=== PATIENT | female | born 1935 | race Hispanic/Latino ===

== ENCOUNTER 2016-11-04 12:09 | Observation (INO) | payer MEDICARE ==
--- NOTE | 2016-11-04 12:39 | ED PDOC ---
Arrival/HPI - General Historian: Patient - Critical Care Critical Care Minutes: 45 minutes - History of Present Illness Time/Duration: Prior to Arrival Symptom Onset: Sudden Symptom Course: Unchanged - General Chief Complaint: Palpitations Time Seen by Provider: 11/04/16 12:11 - Critical Care Narrative Critical Care (Text): 11/04/16 12:53 81yo F presenting in supraventricular tachycardia (SVT). The patient was given 6mg Adenosine IVP. The patient was placed on continuous EKG at this time. Prior to the adenosine push, the patient's HR was 153 and regular. The patient reported feeling faint following the injection. She was monitored on continuous EKG and via telemetric leads. The patient's HR was confirmed as sinus via EKG. The patient was observed and monitored following the procedure. (Apolinar Hernandez) - History of Present Illness Narrative History of Present Illness (Text): 11/04/16 12:32 This is an 81 year old female with a PMH notable for CAD and HTN presenting by referral from PMD to the ED for evaluation of heart palpitations. The patient notes that she was shopping when she started to have palpitations. There was no associated chest pain. The patient notes that she feels her heart racing and then one big beat, a pause, then her heart begins to race again. There is no associated SOB, chest pain, syncopal episodes. (Apolinar Hernandez) Past Medical History - Provider Review Nursing Documentation Reviewed: Yes - Travel History Have you recently traveled outside [place] w/in the past 3 mons?: No - Infectious Disease Hx of Infectious Diseases: None - Tetanus Immunization Tetanus Immunization: Unknown - Reproductive Menopause: Yes - Cardiac Hx Cardiac Disorders: Yes Hx Coronary Artery Disease: Yes (s/p quadruple bypass (1998) and 4 stents (2012) ) Hx Cardiac Arrhythmia: Yes (SVT) Hx Hypertension: Yes Other/Comment: cardiac stent - Pulmonary Hx Emphysema: No - Neurological Hx Neurological Disorder: Yes (SYNCOPE) - HEENT Hx HEENT Disorder: No - Renal Hx Renal Disorder: No - Endocrine/Metabolic Hx Endocrine Disorders: No - Hematological/Oncological Hx Blood Disorders: No - Integumentary Hx Dermatological Disorder: No - Musculoskeletal/Rheumatological Hx Musculoskeletal Disorders: Yes Hx Falls: Yes Hx Fractures: Yes (hip surgery) - Gastrointestinal Hx Gastrointestinal Disorders: Yes Other/Comment: gatroenteritis - Genitourinary/Gynecological Hx Genitourinary Disorders: No - Psychiatric Hx Depression: No Hx Emotional Abuse: No Hx Physical Abuse: No Hx Substance Use: No - Surgical History Hx Cardiac Catheterization: Yes (RECENT PTCA WITH 4 STENT) Hx Coronary Stent: Yes (X4) Hx Hysterectomy: Yes Hx Open Heart Surgery: Yes Hx Orthopedic Surgery: Yes (HIP R) Other/Comment: CABG 1998, CARDIAC STNETS X 4, - Anesthesia Hx Anesthesia Reactions: Yes Hx Malignant Hyperthermia: No - Suicidal Assessment Feels Threatened In Home Enviroment: No - Patient History Narrative Patient History: CAD and HTN (Apolinar Hernandez) Family/Social History - Physician Review Nursing Documentation Reviewed: Yes Family/Social History: Unknown Family HX Smoking Status: Never Smoked Hx Alcohol Use: Yes ([employer]) Frequency of alcohol use: Socially Hx Substance Use: No Hx Substance Use Treatment: No Allergies/Home Meds Allergies/Adverse Reactions: Allergies codeine Allergy (Verified 11/04/16 16:45) NAUSEA radiological cotrast Allergy (Uncoded 11/04/16 16:45) URTICARIA Home Medications: Home Meds Medication Instructions Recorded Confirmed Aspirin [Aspirin] 81 mg PO DAILY 06/10/13 11/05/16 ALPRAZolam [Xanax] 0.25 mg PO TID PRN 11/04/16 11/05/16 Atorvastatin [Lipitor] 40 mg PO DAILY 11/04/16 11/04/16 Carvedilol [Coreg] 6.25 mg PO DAILY 11/04/16 11/05/16 Clopidogrel [Plavix] 75 mg PO DAILY 11/04/16 11/05/16 Ezetimibe [Zetia] 10 mg PO DAILY 11/04/16 11/05/16 Polyethylene Glycol 3350 [Miralax] 17 gm PO BID 11/04/16 11/04/16 Ramipril [Altace] 5 mg PO DAILY 11/04/16 11/05/16 Review of Systems - Physician Review All systems were reviewed & negative as marked: Yes - Review of Systems Constitutional: absent: Fatigue Eyes: absent: Vision Changes ENT: absent: Tinnitus Respiratory: absent: SOB Cardiovascular: Palpitations. absent: Chest Pain, Syncope Gastrointestinal: absent: Abdominal Pain Musculoskeletal: absent: Arthralgias, Back Pain Skin: absent: Rash Neurological: absent: Headache Physical Exam Temperature: Afebrile Blood Pressure: Hypertensive Pulse: Tachycardic Respiratory Rate: Normal Appearance: Positive for: Well-Appearing, Comfortable Pain Distress: None Mental Status: Positive for: Alert and Oriented X 3 - Systems Exam Head: Present: Atraumatic, Normocephalic Pupils: Present: PERRL Extroacular Muscles: Present: EOMI Conjunctiva: Present: Normal Mouth: Present: Moist Mucous Membranes Respiratory/Chest: Present: Clear to Auscultation, Good Air Exchange. No: Respiratory Distress, Accessory Muscle Use Cardiovascular: Present: Normal S1, S2, Tachycardic. No: Regular Rate and Rhythm, Murmurs Abdomen: Present: Normal Bowel Sounds. No: Tenderness, Distention, Peritoneal Signs Upper Extremity: Present: Normal Inspection, NORMAL PULSES, Neurovascularly Intact. No: Cyanosis, Edema Lower Extremity: Present: Normal Inspection, NORMAL PULSES, Neurovascularly Intact. No: Edema Neurological: Present: GCS=15, CN II-XII Intact, Speech Normal Skin: Present: Warm, Dry Psychiatric: Present: Alert, Oriented x 3 Vital Signs Temp Pulse Pulse Resp BP Pulse Ox 11/04/16 15:36 72 18 162/73 H 98 11/04/16 14:00 153 H 11/04/16 12:09 97.6 F 153 H 18 143/93 H 97 Medical Decision Making - Lab Interpretations I have reviewed the lab results: Yes Interpretation: No clinic. lab abnormalty (minimal elevation in BNP, no ausculatory findings or clinical sequela) - EKG Interpretation Interpreted by ED Physician: Yes Type: Monitor strip Comparison: Com.w/previous EKG ED Course and Treatment: 11/04/16 13:02 Impression: This is an 81 year old female with a PMH notable for CAD and HTN presenting by referral from PMD to the ED for evaluation of heart palpitations. The patient was evaluated on telemetric monitoring and diagnosed as have a rhythm of SVT. Adenosine was given (6mg). The patient was monitored on continuous EKG during adenosine challenge and found to have a sinus rhythm. The patient appears comfortable presently. The patient tolerated the adenosine challenge. The patient will require admission for observation and telemetric monitoring. Differential Diagnosis: SVT A-Fib with RVR Sinus Tachycardia Plan: Adenosine 6mg IVP Challenge EKG Urine C&S Cardiac ISO BNP, CMP, Mag, Phos, TSH, CBC, PT, PTT Prior Visits: 10/10/15- SVT 08/10/13- Syncope 07/03/13- CAD 06/17/13- Chest Pain Progress Note: Patient seen and examined at the bedside. The patient is in minimal distress 2/ 2 to tachycardia and palpitations. Patient has a regular rhythm and per evaluation of tele monitor and EKG appears in SVT. The patient was given adenosine for diagnostic purposes and was monitored on continuous EKG. The patient tolerated the procedure well. SVT was confirmed. The patient will be admitted to the telemetry floor. The patient is currently at a HR in the high 60s low 70s. Down from 140-150s. The patient is comfortable currently. (Apolinar Hernandez) - Lab Interpretations Lab Results: 11/04/16 12:45 11/04/16 12:45 Lab Results 11/04/16 12:45: WBC 10.3 D, RBC 4.01, Hgb 12.7, Hct 37.4, MCV 93.3, MCH 31.7, MCHC 34.0, RDW 13.9, Plt Count 225, MPV 9.7, Gran % 80.3 H, Lymph % (Auto) 9.8 L , [place] % (Auto) 7.8 H, Eos % (Auto) 1.8, Baso % (Auto) 0.3, Gran # 8.28 H, Lymph # 1.0 L, [place] # 0.8 H, Eos # 0.2, Baso # 0.03, PT 10.8, INR 1.00, APTT 27.4, Sodium 137, Potassium 4.6, Chloride 99, Carbon Dioxide 30, Anion Gap 13, BUN 12, Creatinine 0.7, Est GFR ( Amer) > 60, Est GFR (Non-Af Amer) > 60 , Random Glucose 111 H, Calcium 9.7, Phosphorus 4.4, Magnesium 2.1, Total Bilirubin 0.7, AST 50 H, ALT 35, Alkaline Phosphatase 82, Lactate Dehydrogenase 502, Total Creatine Kinase 46, Troponin I < 0.01 D, NT-Pro-B Natriuret Pep 540 H, Total Protein 8.4 H, Albumin 4.5, Globulin 3.9, Albumin/Globulin Ratio 1.2, TSH 3rd Generation 1.88 - RAD Interpretation Radiology Orders: 11/04/16 12:40 CHEST PORTABLE [RAD] Stat - EKG Interpretation EKG Interpretation (Text): 11/04/16 15:24 SVT (Apolinar Hernandez) - Medication Orders Current Medication Orders: Discontinued Medications Adenosine (Adenosine 6 Mg/2 Ml Inj) Confirm Administered Dose 12 mg .ROUTE .STK- MED ONE Stop: 11/04/16 12:43 Last Admin: 11/04/16 12:50 Dose: 6 MG Alprazolam (Xanax) 0.25 mg PO TID JOCELYN PRN Reason: Protocol Stop: 11/12/16 10:01 Last Admin: 11/05/16 14:15 Dose: 0.25 MG Behavioural Document 11/05/16 14:15 FJA (Rec: 11/05/16 14:15 [email or web address]-[id number]) Maintenance Maintenance Dose Yes Alprazolam (Xanax) 0.25 mg PO STAT STA PRN Reason: Protocol Stop: 11/04/16 21:00 Last Admin: 11/04/16 21:49 Dose: 0.25 MG Behavioural Document 11/04/16 21:49 [email or web address] (Rec: 11/04/16 21:[id number]) Maintenance Maintenance Dose Yes Nonmedicinal Nonmedicinal Interventions Activity Behavior Behavior for Medication: Anxiety Aspirin (Ecotrin) 81 mg PO DAILY [facility] Last Admin: 11/05/16 10:03 Dose: 81 MG Atorvastatin Calcium (Lipitor) 40 mg PO DIN [facility] Last Admin: 11/04/16 19:59 Dose: 40 MG Carvedilol (Coreg) 6.25 mg PO BID JOCELYN Carvedilol (Coreg) 6.25 mg PO STAT STA Stop: 11/04/16 21:08 Last Admin: 11/04/16 21:52 Dose: 6.25 MG MAR Pulse and Blood Pressure Document 11/04/16 21:52 [email or web address] (Rec: 11/04/16 21:52 [email or web address] [id number]) Pulse Pulse Rate (60-90) 76 Blood Pressure Blood Pressure (100/60-150/90) 144/72 Carvedilol (Coreg) 6.25 mg PO TID [facility] Last Admin: 11/05/16 14:14 Dose: 6.25 MG MAR Pulse and Blood Pressure Document 11/05/16 14:14 FJ (Rec: 11/05/16 14:15 [facility]-[id number]) Pulse Pulse Rate (60-90) 66 Blood Pressure Blood Pressure (100/60-150/90) 144/92 Clopidogrel Bisulfate (Plavix) 75 mg PO DAILY [facility] Last Admin: 11/05/16 10:03 Dose: 75 MG Ezetimibe (Zetia) 10 mg PO DAILY [facility] Last Admin: 11/05/16 10:04 Dose: 10 MG Influenza Virus Vaccine (Fluvirin) 45 mcg IM .ONCE ONE Stop: 11/04/16 20:13 Pneumococcal Polyvalent Vaccine (Pneumovax 23 Vaccine) 0.5 ml IM .ONCE ONE Stop: 11/04/16 20:13 Ramipril (Altace) 5 mg PO DAILY [facility] Last Admin: 11/05/16 10:02 Dose: 5 MG MAR Blood Pressure Document 11/05/16 10:02 JULIET (Rec: 11/05/16 10:03 [facility]-[id number]) Blood Pressure Blood Pressure (100/60-150/90) 139/90 Disposition/Present on Arrival - Present on Arrival Any Indicators Present on Arrival: No History of DVT/PE: No History of Uncontrolled Diabetes: No Urinary Catheter: No History Surgical Site Infection Following: None - Disposition Have Diagnosis and Disposition been Completed?: Yes Disposition Time: 15:34 Patient Plan: Admission, Telemetry - Disposition Diagnosis: SVT (supraventricular tachycardia), Palpitations Disposition: HOSPITALIZED Condition: FAIR
[2016-11-04 13:03] LABS: ADD MANUAL DIFF? NO
[2016-11-04 13:11] LABS: BASO # 0.03 K/mm3 (0.0-2.0); BASO % 0.3 % (0.0-3.0); EOS # 0.2 (0.0-0.7); EOS % 1.8 % (1.5-5.0); GRAN # 8.28 (1.4-6.5); GRAN % 80.3 % (50.0-68.0); HEMATOCRIT 37.4 % (36.0-48.0); LYMPH % 9.8 % (22.0-35.0); MEAN CELL VOLUME 93.3 fL (80.0-105.0); MEAN CORPUSCULAR HEMOGLOBIN 31.7 pg (25.0-35.0); MEAN PLATELET VOLUME 9.7 fl (7.0-11.0); MONO # 0.8 (0.1-0.6); MONO % 7.8 % (1.0-6.0); PLATELET COUNT 225 10^3/uL (120.0-450.0); RED CELL DISTRIBUTION WIDTH 13.9 % (11.5-14.5); WHITE BLOOD COUNT 10.3 10^3/ul (4.5-11.0)
[2016-11-04 13:16] LABS: ALB/GLOB RATIO 1.2 (1.1-1.8); ALKALINE PHOSPHATASE 82 U/L (38-133); ALT/SGPT 35 U/L (7-56); AST/SGOT 50 U/L (15-39); BILIRUBIN,TOTAL 0.7 mg/dL (0.2-1.3); BLOOD UREA NITROGEN 12 mg/dL (7-21); CALCIUM 9.7 mg/dL (8.4-10.5); CARBON DIOXIDE 30 mmol/L (21-33); CHLORIDE 99 mmol/L (98-107); GFR AFRICAN-AMERICAN > 60; GLUCOSE,RANDOM 111 mg/dL (70-110); MAGNESIUM 2.1 mg/dL (1.7-2.2); PHOSPHOROUS 4.4 mg/dL (2.5-4.5); POTASSIUM 4.6 mmol/L (3.6-5.0); SODIUM 137 mmol/L (132-148); TOTAL PROTEIN 8.4 g/dL (5.8-8.3)
[2016-11-04 13:18] LABS: PARTIAL THROMBOPLASTIN TIME 27.4 Seconds (23.7-30.8)
[2016-11-04 13:32] LABS: TROPONIN I < 0.01 ng/mL
[2016-11-04 14:25] LABS: PH,URINE 6.5 (4.7-8.0); URINE BILIRUBIN NEGATIVE (NEGATIVE); URINE BLOOD NEGATIVE (NEGATIVE); URINE GLUCOSE (UA) NEGATIVE (NEGATIVE); URINE KETONE NEGATIVE (NEGATIVE); URINE LEUKOCYTE ESTERASE SMALL Leu/uL (NEGATIVE); URINE PROTEIN NEGATIVE mg/dL (<30 mg/dL); URINE UROBILINOGEN 0.2 E.U./dL (<1 E.U./dL)
[2016-11-04 14:27] LABS: URINE APPEARANCE CLEAR (CLEAR); URINE COLOR YELLOW (YELLOW)
--- NOTE | 2016-11-04 14:27 | RAD ---
HISTORY: palpitations COMPARISON: No prior. FINDINGS: LUNGS: Lung markings are accentuated. There is no focal consolidation. PLEURA: No significant pleural effusion identified, no pneumothorax apparent. CARDIOVASCULAR: The heart is normal in size. Status post CABG. OSSEOUS STRUCTURES: Within normal limits for the patient's age. VISUALIZED UPPER ABDOMEN: Normal. OTHER FINDINGS: None. IMPRESSION: Mild pulmonary venous congestion. No focal consolidation or pleural effusions.
[2016-11-04 14:39] LABS: URINE EPITHELIAL CELLS 0 - 2 /hpf (0-5); URINE RBC NEGATIVE /hpf (0-2); URINE WBC 0 - 2 /hpf (0-6)
[2016-11-04] MEDS ORDERED: Pneumococcal 23-Valent Vaccine IM ONE (20:12)
[2016-11-04] MEDS ORDERED: Influenza Vaccine 45 MCG/0.5 ml IM ONE (20:12)
[2016-11-04 20:13] VITALS: BMI 24.3
[2016-11-05 05:04] VITALS: RESP 20
[2016-11-05 05:55] VITALS: TEMP 98; O2SAT 97
--- NOTE | 2016-11-05 09:46 | CARD ---
APPROVED REPORT EKG Measurement Heart [id number] <Conclusion> Supraventricular tachycardia, new Left ventricular hypertrophy with repolarization abnormality LAD Possible IMI, old PRWP STTW changes c/w ischemia
--- NOTE | 2016-11-05 09:51 | CARD ---
APPROVED REPORT EKG Measurement Heart [id number] [place] [id number] <Conclusion> Sinus tachycardia, new since earlier ECG LAD Possible IMI, luiza trejo
--- NOTE | 2016-11-05 09:53 | CARD ---
APPROVED REPORT EKG Measurement Heart [id number] [place] [id number] <Conclusion> Normal sinus rhythm LVH LAD STTW changes. No change except slower rate.
--- NOTE | 2016-11-05 10:32 | CON ---
DATE: 11/05/2016 INDICATIONS: SVT. HISTORY OF PRESENT ILLNESS: This is an 81-year-old woman known to me, admitted yesterday with palpitations, which developed while shopping that persisted for several hours. She went to the office of Dr. Avery. She was sent to the Emergency Room, given adenosine, and the SVT broke to sinus rhythm. She remained in sinus rhythm. She is currently on telemetry. She feels well this morning without symptoms. She had described palpitations, but no chest pain, shortness of breath, orthopnea, PND, syncope, dizziness, lightheadedness, vertigo, edema, claudication, fever, chills, cough, sputum production, hemoptysis, abdominal pain, nausea, vomiting, diarrhea, constipation , or melena. PAST MEDICAL HISTORY: Notable for prior episode of SVT. She has a history of coronary artery disease with remote coronary bypass surgery complicated by perioperative myocardial infarction. In 2012, she underwent coronary interventions. She has cerebrovascular disease, hyperlipidemia, hypertension, hip surgery, and a hysterectomy. There is no history of rheumatic fever, diabetes, stroke, or gout. MEDICATIONS: At the time of admission include Altace, aspirin, Coreg, Lipitor, Plavix, Zetia, Xanax, MiraLax. ALLERGIES: SHE NOTES AN ALLERGY TO CODEINE AND TO IV CONTRAST. SOCIAL HISTORY: She lives at home. She is retired. She is ambulatory. She does not smoke cigarettes. She does not drink alcohol significantly. FAMILY HISTORY: Noncontributory. REVIEW OF SYSTEMS: Ten-point review of systems otherwise unremarkable except as noted above. PHYSICAL EXAMINATION: GENERAL: She is a well-developed elderly woman, sitting on her bed in telemetry , in no acute distress. VITAL SIGNS: Unremarkable. She is in sinus rhythm, sinus bradycardia, currently 63 beats per minute. She is afebrile. Blood pressure 139/70, respirations 20, O2 sat 97% on room air. HEENT: Reveals no neck-vein distention, thyromegaly, or carotid bruits. Mucous membranes are moist. Conjunctivae are pink. NECK: Supple. LUNGS: Lung mon are clear. HEART: Revealed normal first and second heart sounds without murmur, gallop, rub, or click. ABDOMEN: Soft. Bowel sounds are present. No mass, organomegaly, tenderness, rebound, or guarding. No palpable abdominal aortic aneurysm. EXTREMITIES: Revealed no cyanosis, clubbing, or edema. NEUROLOGIC: She is awake, alert, oriented, and intact. SKIN: Warm and dry. No rash or cellulitis. PSYCHIATRIC: Normal as to mood and affect. LABORATORY AND IMAGING: A chest x-ray reveals a portable study. Mild pulmonary vascular congestion is noted. EKGs initially show rapid SVT at 152 beats per minute with ST-T wave changes and LVH. Followup EKG shows sinus rhythm, sinus tachycardia, left axis deviation, ST-T wave changes. CBC is unremarkable. PT, INR, PTT unremarkable. Electrolytes, BUN, creatinine , blood sugar unremarkable. Magnesium 2.1. LFTs unremarkable except for a slightly elevated AST at 50. CK is 46, troponin less than 0.01. BNP 540. TSH 1.88. IMPRESSION: The patient is an 81-year-old woman with coronary artery disease status post remote coronary bypass surgery complicated by a myocardial infarction perioperatively at that time admitted with SVT which broke with adenosine. She has had coronary interventions in 2012 and a history of supraventricular tachycardia once before. At this time, she has remained in sinus rhythm. I would continue her medications including Coreg, which I would titrate upward. I will repeat her troponin this morning. I will review her old records. She can be out of bed and ambulate. She will be getting Altace, Coreg 6.25 t.i.d., aspirin, atorvastatin, Plavix, and Zetia. On an outpatient basis, she should be considered for an electrophysiology evaluation and possible supraventricular tachycardia ablation as appropriate. I will discuss this with her. In the meantime, we will titrate her beta-cullen and plan for early discharge either later today or tomorrow. Charlie Coppola MD cc: [id number] TT: 11/05/2016 10:32:32 Confirmation # [id number] Dictation # [id number] jn ANAM
[2016-11-05 14:16] VITALS: BP 144/92; PULSE 66
--- NOTE | 2016-11-06 09:27 | CARD ---
APPROVED REPORT EXAM: Two-dimensional and M-mode echocardiogram with Doppler and color Doppler. INDICATION palpitations, SVT, old [place] 2D DIMENSIONS Left Atrium (2D)3.4 (1.6-4.0cm)IVSd1.2 (0.7-1.1cm) Aortic Root (2D)3.0 (2.0-3.7cm)LVDd3.4 (3.9-5.9cm) LVOT Diameter1.9 (1.8-2.4cm)PWd1.2 (0.7-1.1cm) LVDs2.4 (2.5-4.0cm)FS (%) 28.8 % LVEF (%)56.0 (>50%) M-Mode DIMENSIONS Aortic Cusp Exc.0.90 (1.5-2.0cm) Aortic Valve AoV Peak Iuzygqov696.0cm/sAoV VTI84.0cmAO Peak GR.43mmHg LVOT Peak Yazzuqbq86.0cm/sLVOT VTI25.30cmAO Mean GR.27mmHg GODWIN (VMAX)0.27sj4HOO (VTI)0.95ei6BJ P 1/2 Icuh259wy Mitral Valve MV E Nslkgofd779.0cm/sMV E Peak Gr.84mmHgMV A Vszyieny562.0cm/s E/A ratio0.9 TDI Lateral E' Peak V8.38cm/sMedial E' Peak V4.19cm/sE/Lateral E'12.9 E/Medial E'25.8 Pulmonary Valve PV Peak Zwvdttfj94.7cm/sPV Peak Grad.4mmHg Tricuspid Valve TR Peak Lurgouiq412bj/sRAP SUCCHFCT0qtKyOF Peak Gr.23mmHg KJIE96pwSi LEFT VENTRICLE The left ventricle is normal size. There is mild concentric left ventricular hypertrophy. The left ventricular function is normal. The left ventricular ejection fraction is within the normal range. There is normal LV segmental wall motion. RIGHT VENTRICLE The right ventricle is normal size. ATRIA The left atrium is mildly dilated. The right atrium size is normal. The interatrial septum is intact with no evidence for an atrial septal defect. AORTIC VALVE The aortic valve is severely calcified. There is mild aortic regurgitation. There is moderate valvular aortic stenosis. MITRAL VALVE The mitral valve is moderately thickened but opens well. There are mitral annular and subvalvular calcifications. Mitral regurgitation is mild. TRICUSPID VALVE The tricuspid valve is normal in structure. There is trace tricuspid regurgitation. PULMONIC VALVE The pulmonic valve is not well visualized. GREAT VESSELS The aortic root is normal in size. PERICARDIAL EFFUSION There is no pericardial effusion. <Conclusion> The left ventricle is normal size. There is mild concentric left ventricular hypertrophy. The left ventricular function is normal. The aortic valve is severely calcified. There is moderate valvular aortic stenosis. There is mild aortic regurgitation. Mitral regurgitation is mild.
--- NOTE | 2016-11-07 11:20 | HP ---
The patient is an 81-year-old female who presented to the office complaining of palpitations. She was found to be in AFib/SVT, was sent to the Emergency Room, is evaluated and admitted. In the Emergency Room, EKG showed supraventricular tachycardia. She was treated with adenosine, converted to regular sinus rhythm. The patient tolerated this well. When seen, she was awake, alert, and oriented without any complaints. PAST MEDICAL HISTORY: Positive for coronary artery disease. She is status post coronary artery bypass grafting in 1998, and 4 stents were placed in 2012. She says she had a history of SVT since she was 15 years old. She was essentially no other past medical history. She is status post hip surgery. ALLERGIES: SHE IS KNOWN TO BE ALLERGIC TO CODEINE, WHICH CAUSED NAUSEA, AND INTRAVENOUS CONTRAST MEDIUM, WHICH CAUSED HIVES. MEDICATIONS: At the time of admission included ramipril 5 mg, Xanax 0.25 three times a day as needed, Zetia 10 mg once a day, Lipitor 40 mg, Plavix 75 mg, Coreg 6.25 mg 3 times a day, and aspirin 81 mg. REVIEW OF SYSTEMS: Otherwise, unremarkable. PHYSICAL EXAMINATION: VITAL SIGNS: Her blood pressure is 143/93. Heart rate is 133 prior to conversion to regular sinus. She is afebrile. HEAD, EYES, EARS, NOSE, AND THROAT: Unremarkable. NECK: Supple, with no lymphadenopathy, no goiter. No carotid bruits are appreciated. HEART: Now regular at about 98 beats per minute. Her blood pressure is 159/90 , and her heart rate is down to 63 beats per minute. LUNGS: Clear to auscultation and percussion. ABDOMEN: Soft and nontender. EXTREMITIES: Free of cyanosis, clubbing, or edema. SKIN: Warm and dry with no active lesions. NEUROLOGIC: She is awake, alert, and oriented with no focal neurological signs. LABORATORY STUDIES: Show the BNP to be 540. Troponins are negative. White blood cell count is 10.3. Hemoglobin and hematocrit are 12.7 and 37.4. Platelet count is 225. Sodium is 137, potassium 4.6. BUN is 12, creatinine 0.7. So, the patient is to be admitted. Dr. Coppola, her registered land surveyor, is called consult, and the patient will be followed closely. Felton Avery MD cc: [phone] TT: 11/07/2016 11:19:41 jn ANAM
--- NOTE | 2016-11-07 14:52 | DS ---
The patient is an 81-year-old female with a history of coronary artery disease, status post coronary artery bypass grafting in 1998, status post stent placement in 2012, who had a history of SVT ever si nce she was a 15-year-old, who presented to the Emergency Room in SVT on 11/04, yesterday. She was tr eated with adenosine in the Emergency Room, converted to regular sinus rhythm and had been stable. W hen seen today, 11/05, the patient is awake, alert, and oriented. She is feeling well. She has no co mplaints. She has remained in regular sinus rhythm overnight. She was evaluated by her teaching specialists , Dr. Coppola. PHYSICAL EXAMINATION: HEART: Regular, no murmurs are appreciated. LUNGS: Clear. ABDOMEN: Soft and nontender. The patient's home medications were continued during the hospital stay. Dr. Coppola's notes are appre ciated. We will be increasing her beta cullen. She is cleared for discharge if okay with Dr. Timo christopher. We are currently awaiting the results of an echocardiogram and post discharge, the patient will c ontinue to be followed closely. Consider a possible ablation therapy for her SVT. FINAL DIAGNOSES: Supraventricular tachycardia, coronary artery disease, status post stent placed, st atus post percutaneous transluminal coronary angioplasty, status post coronary artery bypass grafting . Felton Avery MD cc: [phone] TT: 11/07/2016 14:51:43 en
== END 2016-11-05 16:40 | disposition home or self-care (01) ==
LOC: ED 12:09 → ERH 13:34 → 2RNO 16:47
PROVIDERS: ADMIT Internal Medicine; ATTEND Internal Medicine
DX: I47.1 Supraventricular tachycardia (principal); R00.0 Tachycardia, unspecified; E78.5 Hyperlipidemia, unspecified; I48.91 Unspecified atrial fibrillation; I10 Essential (primary) hypertension; I25.10 Atherosclerotic heart disease of native coronary artery without angina pectoris; I67.9 Cerebrovascular disease, unspecified; Z79.02 Long term (current) use of antithrombotics/antiplatelets; Z79.82 Long term (current) use of aspirin; Z79.899 Other long term (current) drug therapy; Z90.710 Acquired absence of both cervix and uterus; Z95.1 Presence of aortocoronary bypass graft; Z95.5 Presence of coronary angioplasty implant and graft; I25.2 Old myocardial infarction; Z88.5 Allergy status to narcotic agent; Z91.041 Radiographic dye allergy status
CPT/HCPCS: 36415; 71010; 80053; 81001; 82550; 83615; 83735; 83880; 84100; 84443; 84484; 85025; 85610; 85730; 87086; 93005; 93306; 99285; G0378; J0153

== ENCOUNTER 2017-01-03 12:00 | Emergency (ER) | payer MEDICARE ==
[2017-01-03 12:13] VITALS: BMI 24.4
[2017-01-03 12:18] VITALS: TEMP 97.9; O2SAT 96
[2017-01-03 12:26] LABS: ADD MANUAL DIFF? NO
--- NOTE | 2017-01-03 12:29 | ED PDOC ---
Arrival/HPI <Renny Taiitriy - Last Filed: 01/03/17 13:41> - General Historian: Patient - History of Present Illness Time/Duration: Prior to Arrival Symptom Onset: Sudden Symptom Course: Unchanged <Shaka Valverde - Last Filed: 01/03/17 13:47> - General Chief Complaint: Palpitations Time Seen by Provider: 01/03/17 12:08 - History of Present Illness Narrative History of Present Illness (Text): 81 F with pmh of HLD, CAD (CABG and 4 stents) , HTN presents to the ED with palpitations. Pt states that her palpitations started this morning a prox 2 hours before arrival to the ED. Pt denies any chest pain or shortness of breath. Pt states that she has gotten this before on her last hospital visit on 11/04/16 and they used a drug to break the rhythm. She denies any hartman, dizziness , f/c, sob, cp, palpitations, abd pain, urinary or bm changes. PMD: Dr Avery (Shaka Valverde) Past Medical History - Provider Review Nursing Documentation Reviewed: Yes - Infectious Disease Hx of Infectious Diseases: None - Tetanus Immunization Tetanus Immunization: Unknown - Cardiac Hx Cardiac Disorders: Yes Hx Cardiac Arrhythmia: Yes (SVT) Hx Hypertension: Yes Other/Comment: cardiac stent - Pulmonary Hx Emphysema: No - Neurological Hx Neurological Disorder: Yes (SYNCOPE) Hx Dizziness: Yes - HEENT Hx HEENT Disorder: No - Renal Hx Renal Disorder: No - Endocrine/Metabolic Hx Endocrine Disorders: No - Hematological/Oncological Hx Blood Disorders: No - Integumentary Hx Dermatological Disorder: No - Musculoskeletal/Rheumatological Hx Musculoskeletal Disorders: Yes Hx Falls: Yes Hx Fractures: Yes (RIGHT hip surgery) - Gastrointestinal Hx Gastrointestinal Disorders: Yes (HEMORRHOIDS) Other/Comment: gatroenteritis - Genitourinary/Gynecological Hx Genitourinary Disorders: No - Psychiatric Hx Depression: No Hx Emotional Abuse: No Hx Physical Abuse: No Hx Substance Use: No - Surgical History Hx Cardiac Catheterization: Yes (RECENT PTCA WITH 4 STENT) Hx Coronary Stent: Yes (X4) Hx Hysterectomy: Yes Hx Open Heart Surgery: Yes Hx Orthopedic Surgery: Yes (HIP R) Other/Comment: CABG 1998, CARDIAC STNETS X 4, - Anesthesia Hx Anesthesia Reactions: Yes Hx Malignant Hyperthermia: No - Suicidal Assessment Feels Threatened In Home Enviroment: No <Shaka Valverde - Last Filed: 01/03/17 13:47> Family/Social History Family/Social History: CAD/[place] (parents ) Smoking Status: Never Smoked Hx Alcohol Use: Yes ([employer] TIME) Hx Substance Use: No Hx Substance Use Treatment: No <BrysonstaceySandraa - Last Filed: 01/03/17 13:47> Allergies/Home Meds <Gino Tai - Last Filed: 01/03/17 13:41> <TonycrysShaka - Last Filed: 01/03/17 13:47> Allergies/Adverse Reactions: Allergies codeine Allergy (Verified 11/04/16 16:45) NAUSEA radiological cotrast Allergy (Uncoded 11/04/16 16:45) URTICARIA Home Medications: Home Meds Medication Instructions Recorded Confirmed Aspirin [Aspirin] 81 mg PO DAILY 06/10/13 01/03/17 ALPRAZolam [Xanax] 0.25 mg PO TID PRN 11/04/16 01/03/17 Atorvastatin [Lipitor] 40 mg PO DAILY 11/04/16 01/03/17 Carvedilol [Coreg] 6.25 mg PO QID 11/04/16 01/03/17 Clopidogrel [Plavix] 75 mg PO DAILY 11/04/16 01/03/17 Ezetimibe [Zetia] 10 mg PO DAILY 11/04/16 01/03/17 Polyethylene Glycol 3350 [Miralax] 17 gm PO BID 11/04/16 01/03/17 Ramipril [Altace] 5 mg PO DAILY 11/04/16 01/03/17 Review of Systems - Physician Review All systems were reviewed & negative as marked: Yes - Review of Systems Respiratory: absent: SOB, Cough Cardiovascular: Palpitations. absent: Chest Pain Gastrointestinal: absent: Abdominal Pain <BrysonstaceyShaka - Last Filed: 01/03/17 13:47> Physical Exam Temperature: Afebrile Blood Pressure: Normal Pulse: Tachycardic Respiratory Rate: Normal Appearance: Positive for: Well-Appearing, Non-Toxic, Comfortable Pain Distress: None Mental Status: Positive for: Alert and Oriented X 3 - Systems Exam Head: Present: Atraumatic, Normocephalic Pupils: Present: PERRL Extroacular Muscles: Present: EOMI Conjunctiva: Present: Normal Mouth: Present: Moist Mucous Membranes Neck: Present: Normal Range of Motion Respiratory/Chest: Present: Clear to Auscultation, Good Air Exchange. No: Respiratory Distress, Accessory Muscle Use Cardiovascular: Present: Regular Rate and Rhythm, Normal S1, S2. No: Murmurs Abdomen: Present: Normal Bowel Sounds. No: Tenderness, Distention, Peritoneal Signs Upper Extremity: Present: Normal Inspection. No: Cyanosis, Edema Lower Extremity: Present: Normal Inspection. No: Edema Neurological: Present: GCS=15, CN II-XII Intact, Speech Normal Skin: Present: Warm, Dry, Normal Color. No: Rashes Psychiatric: Present: Alert, Oriented x 3, Normal Insight, Normal Concentration <Shaka Valverde - Last Filed: 01/03/17 13:47> Vital Signs Temp Pulse Resp BP Pulse Ox 01/03/17 12:18 91 H 20 151/79 H 96 01/03/17 12:00 97.9 F 148 H 18 140/87 96 Medical Decision Making <Gino Tai - Last Filed: 01/03/17 13:41> - Critical Care Critical Care Minutes: 30 minutes <Shaka Valverde - Last Filed: 01/03/17 13:47> ED Course and Treatment: 01/03/17 13:43 Patient seen and examined with resident Came up with treatment and disposition plan with resident case hetal Coppola in detail, states to have pt f/u with him outpatient this upcoming . pt in no distress, asking to be dc'd home states she does not want to stay in the hospital states she's had SVT since she was a child Pt states she understands to return to the ER right away for new or worsening symptoms or for inability to f/u with PMD or specialist as instructed. Patient states that she fully agrees with and understands discharge instructions. States that she agrees with the plan and disposition. Verbalized and repeated discharge instructions and plan. I have given the patient opportunity to ask any additional questions. (Gino Tai) Impression: 81 F with pmh of HLD, CAD (CABG and 4 stents) , HTN presents to the ED with palpitations / SVT. Differential Diagnosis included but are not limited to: SVT Plan: - Stat EKG - CBC, CMP - Adenosine 6mg IVP - CXR - Reassess and disposition Progress Notes: Pt presented with SVT with rates in 140-150s. Adenosine 6mg IVP stat. Rate now in running in the 90's. Hemodynamically stable. EKG: Pre adenosine Ordered, reviewed, and independently interpreted the EKG. Rate : 147 BPM Rhythm : SVT with occasional PVC and fusion complex Interpretation : LVH with repolarization abnormality Comparison : No previous EKG for comparison. 01/03/17 12:42 EKG: Post adenosine Ordered, reviewed, and independently interpreted the EKG. Rate : 83 BPM Rhythm : sinus rhythm with 1st degree AV block Interpretation : Moderate voltage criteria for LVH, Borderline EKG Comparison : No previous EKG for comparison. 01/03/17 12:51 CXR shows no active disease. 01/03/17 13:12 Pt is hemodynamically stable. States that she is doing well. (Shaka Valverde) - Lab Interpretations Lab Results: 01/03/17 12:20 01/03/17 12:20 Lab Results 01/03/17 12:20: Sodium 138, Potassium 4.6, Chloride 101, Carbon Dioxide 28, Anion Gap 14, BUN 14, Creatinine 0.7, Est GFR ( Amer) > 60, Est GFR (Non- Af Amer) > 60, Random Glucose 115 H, Calcium 9.6, Total Bilirubin 0.8, AST 37, ALT 35, Alkaline Phosphatase 84, Total Protein 8.1, Albumin 4.3, Globulin 3.8, Albumin/Globulin Ratio 1.1 01/03/17 12:20: PT 10.3, INR 0.95, APTT 25.9 01/03/17 12:20: WBC 10.5, RBC 3.94, Hgb 12.4, Hct 36.7, MCV 93.1, MCH 31.5, MCHC 33.8, RDW 13.8, Plt Count 243, MPV 9.8, Gran % 76.0 H, Lymph % (Auto) 10.7 L, Arroyo % (Auto) 8.1 H, Eos % (Auto) 4.6, Baso % (Auto) 0.6, Gran # 7.99 H, Lymph # 1.1 L, Arroyo # 0.9 H, Eos # 0.5, Baso # 0.06 - RAD Interpretation Radiology Orders: 01/03/17 12:17 CHEST PORTABLE [RAD] Stat - Medication Orders Current Medication Orders: Discontinued Medications Adenosine (Adenosine 6 Mg/2 Ml Inj) Confirm Administered Dose 6 mg .ROUTE .STK- MED ONE Stop: 01/03/17 12:16 Last Admin: 01/03/17 12:17 Dose: 6 mg Disposition/Present on Arrival - Present on Arrival Any Indicators Present on Arrival: No - Disposition Have Diagnosis and Disposition been Completed?: Yes Disposition Time: 13:41 Patient Plan: Discharge <Gino Tai - Last Filed: 01/03/17 13:41> - Present on Arrival History of DVT/PE: No History of Uncontrolled Diabetes: No Urinary Catheter: No History of Decub. Ulcer: No History Surgical Site Infection Following: None <Shaka Valverde - Last Filed: 01/03/17 13:47> - Disposition Diagnosis: SVT (supraventricular tachycardia) Disposition: HOME/ ROUTINE Condition: GOOD Discharge Instructions (ExitCare): Supraventricular Tachycardia (ED) Additional Instructions: PLEASE RETURN TO THE EMERGENCY DEPARTMENT FOR NEW OR WORSENING SYMPTOMS. RETURN RIGHT AWAY IF YOU CANNOT FOLLOW UP WITH YOUR PRIMARY CARE DOCTOR, CLINIC, OR SPECIALIST. PLEASE FOLLOW UP WITH DR. COPPOLA OUTPATIENT THIS UPCOMING MONDAY Referrals: Charlie Coppola MD [Staff Provider] - Follow up with primary
[2017-01-03 12:31] LABS: BASO # 0.06 K/mm3 (0.0-2.0); BASO % 0.6 % (0.0-3.0); EOS # 0.5 (0.0-0.7); EOS % 4.6 % (1.5-5.0); GRAN # 7.99 (1.4-6.5); HEMATOCRIT 36.7 % (36.0-48.0); LYMPH # 1.1 (1.2-3.4); LYMPH % 10.7 % (22.0-35.0); MEAN CELL VOLUME 93.1 fL (80.0-105.0); MEAN CORPUSCULAR HEMOGLOBIN 31.5 pg (25.0-35.0); MEAN CORPUSCULAR HGB CONC 33.8 g/dl (31.0-37.0); MEAN PLATELET VOLUME 9.8 fl (7.0-11.0); MONO # 0.9 (0.1-0.6); MONO % 8.1 % (1.0-6.0); PLATELET COUNT 243 10^3/uL (120.0-450.0); RED CELL DISTRIBUTION WIDTH 13.8 % (11.5-14.5); WHITE BLOOD COUNT 10.5 10^3/ul (4.5-11.0)
[2017-01-03 12:46] LABS: INR 0.95 (0.93-1.08); PARTIAL THROMBOPLASTIN TIME 25.9 Seconds (23.7-30.8)
--- NOTE | 2017-01-03 12:47 | RAD ---
HISTORY: cough COMPARISON: 11/04/2016 FINDINGS: LUNGS: No active pulmonary disease. PLEURA: No significant pleural effusion identified, no pneumothorax apparent. CARDIOVASCULAR: Normal. OSSEOUS STRUCTURES: Sternal wires VISUALIZED UPPER ABDOMEN: Normal. OTHER FINDINGS: None. IMPRESSION: No active disease.
[2017-01-03 12:55] LABS: ALB/GLOB RATIO 1.1 (1.1-1.8); ALKALINE PHOSPHATASE 84 U/L (38-133); ALT/SGPT 35 U/L (7-56); AST/SGOT 37 U/L (15-39); BILIRUBIN,TOTAL 0.8 mg/dL (0.2-1.3); BLOOD UREA NITROGEN 14 mg/dL (7-21); CALCIUM 9.6 mg/dL (8.4-10.5); CARBON DIOXIDE 28 mmol/L (21-33); CHLORIDE 101 mmol/L (98-107); GFR AFRICAN-AMERICAN > 60; GLUCOSE,RANDOM 115 mg/dL (70-110); POTASSIUM 4.6 mmol/L (3.6-5.0); SODIUM 138 mmol/L (132-148); TOTAL PROTEIN 8.1 g/dL (5.8-8.3)
[2017-01-03 14:23] VITALS: BP 142/49; PULSE 66; RESP 16
--- NOTE | 2017-01-03 22:31 | CARD ---
APPROVED REPORT EKG Measurement Heart [id number] <Conclusion> Sinus rhythm with 1st degree AV block Moderate voltage criteria for LVH, may be normal variant Borderline ECG
--- NOTE | 2017-01-03 22:34 | CARD ---
APPROVED REPORT EKG Measurement Heart [id number] <Conclusion> Junctional tachycardia with occasional premature ventricular complexes and fusion complexes Left ventricular hypertrophy with repolarization abnormality Consider old inferior infarct Abnormal ECG
== END 2017-01-03 14:20 | disposition home or self-care (01) ==
LOC: ED 12:00
DX: I47.1 Supraventricular tachycardia (principal); I10 Essential (primary) hypertension; I25.10 Atherosclerotic heart disease of native coronary artery without angina pectoris; Z95.1 Presence of aortocoronary bypass graft
CPT/HCPCS: 71010; 80053; 85025; 85610; 85730; 93005; 99284; J0153

== ENCOUNTER 2017-01-25 06:43 | Day surgery (SDC) | payer MEDICARE ==
[2017-01-25 07:14] LABS: ADD MANUAL DIFF? NO
[2017-01-25 07:22] LABS: BASO # 0.02 K/mm3 (0.0-2.0); BASO % 0.3 % (0.0-3.0); EOS # 0.2 (0.0-0.7); EOS % 3.5 % (1.5-5.0); GRAN # 5.18 (1.4-6.5); GRAN % 75.5 % (50.0-68.0); HEMATOCRIT 35.2 % (36.0-48.0); LYMPH # 0.8 (1.2-3.4); MEAN CELL VOLUME 94.1 fL (80.0-105.0); MEAN CORPUSCULAR HEMOGLOBIN 30.7 pg (25.0-35.0); MEAN CORPUSCULAR HGB CONC 32.7 g/dl (31.0-37.0); MEAN PLATELET VOLUME 9.3 fl (7.0-11.0); MONO # 0.6 (0.1-0.6); MONO % 8.7 % (1.0-6.0); PLATELET COUNT 194 10^3/uL (120.0-450.0); WHITE BLOOD COUNT 6.9 10^3/ul (4.5-11.0)
[2017-01-25 07:28] LABS: BLOOD UREA NITROGEN 13 mg/dL (7-21); GFR AFRICAN-AMERICAN > 60
[2017-01-25 07:29] LABS: INR 0.98 (0.93-1.08); PARTIAL THROMBOPLASTIN TIME 27.1 Seconds (23.7-30.8)
[2017-01-25 07:45] LABS: CALCIUM 9.4 mg/dL (8.4-10.5); CARBON DIOXIDE 30 mmol/L (21-33); CHLORIDE 101 mmol/L (98-107); CHOLESTEROL 150 mg/dL (130-200); GLUCOSE,RANDOM 94 mg/dL (70-110); POTASSIUM 4.2 mmol/L (3.6-5.0); SODIUM 141 mmol/L (132-148)
[2017-01-25] MEDS ORDERED: Famotidine 20mg/50ml 20 MG/50 ML BAG IVPB ONE (08:05)
[2017-01-25] MEDS ORDERED: DiphenhydrAMINE 50 mg/ml Inj ONE (08:05)
[2017-01-25] MEDS ORDERED: Lidocaine 2% Inj (20ml) ONE (08:13)
[2017-01-25] MEDS ORDERED: Iodixanol 320 MG/ML 200 ML BOTTLE IV ONE (08:14)
[2017-01-25] MEDS ORDERED: Midazolam 2 MG/2 ML VIAL ONE (08:31)
[2017-01-25] MEDS ORDERED: Sodium Chloride 0.9% 1,000 ML IV SCH (10:00)
--- NOTE | 2017-01-25 10:42 | CARDCATH ---
PROCEDURE DATE: 01/25/2017 PROCEDURES: 1. Right and left heart catheterization. 2. Left and right coronary angiography. 3. Left ventriculography. 4. Percutaneous coronary intervention of saphenous vein graft to right coronary artery with drug-elu ting stent. 5. Right femoral arteriography. 6. Mynx deployment. HISTORY: This is an 81-year-old woman with known coronary artery disease, status post prior bypass s urgery and multivessel PCI, who has had worsening exertional angina. Cardiac catheterization was rec ommended. She also has a history of aortic stenosis. INDICATION: As above. FINDINGS: HEMODYNAMICS: The right heart pressures were as follows: The RA pressure was 7 with an RV pressure of 32/4, the PA pressure was 32/10 with a pulmonary capillary wedge pressure of 14. The cardiac outp ut by thermodilution method was 3.1 liters per minute with cardiac index of 1.88 liters per minute pe r meter square. On catheter pullback from the left ventricle, there was a 10-20 mm aortic valve grad ient consistent with mild aortic stenosis. CORONARY ANGIOGRAPHY: 1. The left mainstem and proximal LAD were moderately calcified. The left mainstem had mild distal taper and the LAD had a long severe diffuse disease in its ostial and proximal segment of 90% severit y. 2. The left circumflex artery had widely patent stents in the proximal and midvessel with no evidenc e of significant restenosis. 3. The right coronary artery had a severe ostial stenosis of 90% severity and evidence of diffuse di sease throughout the mid and distal segments of the vessel. 4. The saphenous vein graft to the right coronary artery had a mild 30% stenosis prior to the stent which was present in the midportion of the graft. The stent in the midportion had mild 20% in-stent restenosis. Distally, the previously placed stent in the distal graft had a 90% stenosis. The dista l vessel filled relatively well. 5. The left internal mammary artery to the LAD was widely patent with good distal runoff. LEFT VENTRICULOGRAPHY: Hand injection was performed in the left ventricle revealing normal wall tanya on with an ejection fraction of 60%. As noted, a 10-20 mm aortic valve gradient was noted on cathete r pullback. CORONARY INTERVENTION: 3500 units of intravenous heparin was administered and the ACT was greater th an 300 seconds during the procedure. The lesion in the saphenous vein graft to the RCA was successfu lly crossed with the use of [place] wire through a multipurpose guide catheter. Initial inflations we re performed with a 3.0 x 12 mm NC balloon at the site of the severe stenosis distally. Following th is, a 3.0 x 15 mm Resolute drug-eluting stent was advanced and deployed into that segment and inflate d to 14 atmospheres. There remained some mild residual after deployment of the stent and, therefore, a 3.25 x 12 mm NC balloon was taken and advanced and inflated to 18 atmospheres for 30 seconds. The re was less than 10% residual stenosis following the intervention and ALEX grade III flow was present at the end of the procedure. The kaibab RCA filled well in retrograde fashion as well. THE RIGHT FEMORAL ARTERIOGRAPHY: A right femoral arteriogram revealed mild diffuse atherosclerotic d isease and a high bifurcation of the femoral artery. The actual sheath appeared to be in the proxima l SFA. This was then closed with a Mynx device. CONCLUSION: 1. Severe kaibab 3-vessel disease. 2. Patent left internal mammary artery to the left anterior descending. 3. Patent stents in left circumflex artery. 4. Severe in-stent restenosis of the distal vein graft to the right coronary artery with successful treatment and placement of a 3.0 x 15 mm Resolute drug-eluting stent, postdilated with a 3.25 mm nonc ompliant balloon. 5. Mild aortic stenosis. 6. Normal left ventricular function. RECOMMENDATIONS: Aspirin and Plavix therapy will be continued indefinitely. Continued risk factor c ontrol is advised. Ethan Cline MD cc:Rashid Avery MD 382 TT: 01/25/2017 10:41:14 mo
[2017-01-25 11:04] LABS: ADD MANUAL DIFF? NO
[2017-01-25 11:06] LABS: BASO # 0.02 K/mm3 (0.0-2.0); BASO % 0.2 % (0.0-3.0); EOS # 0.1 (0.0-0.7); EOS % 1.6 % (1.5-5.0); GRAN # 7.59 (1.4-6.5); GRAN % 87.5 % (50.0-68.0); HEMATOCRIT 34.7 % (36.0-48.0); LYMPH # 0.7 (1.2-3.4); LYMPH % 8.1 % (22.0-35.0); MEAN CELL VOLUME 93.3 fL (80.0-105.0); MEAN CORPUSCULAR HEMOGLOBIN 31.2 pg (25.0-35.0); MEAN CORPUSCULAR HGB CONC 33.4 g/dl (31.0-37.0); MEAN PLATELET VOLUME 9.5 fl (7.0-11.0); MONO # 0.2 (0.1-0.6); MONO % 2.6 % (1.0-6.0); PLATELET COUNT 185 10^3/uL (120.0-450.0); RED CELL DISTRIBUTION WIDTH 13.8 % (11.5-14.5); WHITE BLOOD COUNT 8.7 10^3/ul (4.5-11.0)
[2017-01-25 11:30] LABS: BLOOD UREA NITROGEN 12 mg/dL (7-21); CARBON DIOXIDE 25 mmol/L (21-33); CHLORIDE 105 mmol/L (98-107); GFR AFRICAN-AMERICAN > 60; GLUCOSE,RANDOM 105 mg/dL (70-110); POTASSIUM 4.6 mmol/L (3.6-5.0); SODIUM 138 mmol/L (132-148)
[2017-01-25 13:45] VITALS: O2SAT 97
--- NOTE | 2017-01-25 16:42 | CARD ---
APPROVED REPORT EKG Measurement Heart [id number] <Conclusion> Sinus rhythm with 1st degree AV block Inferior infarct, age undetermined RVCD
[2017-01-25 18:03] VITALS: BP 159/63; PULSE 100; RESP 22; TEMP 98.5
== END 2017-01-25 19:20 | disposition home or self-care (01) ==
LOC: CATH 06:43 → 2RSO 10:26 → CATH 19:20
PROVIDERS: ATTEND Internal Medicine Cardiovascular Disease
DX: I25.118 Atherosclerotic heart disease of native coronary artery with other forms of angina pectoris (principal); I35.0 Nonrheumatic aortic (valve) stenosis; T82.858A Stenosis of other vascular prosthetic devices, implants and grafts, initial encounter; I49.9 Cardiac arrhythmia, unspecified; I73.9 Peripheral vascular disease, unspecified; R06.00 Dyspnea, unspecified; Z95.1 Presence of aortocoronary bypass graft; Z95.5 Presence of coronary angioplasty implant and graft; Z96.641 Presence of right artificial hip joint; Z88.5 Allergy status to narcotic agent; Z91.041 Radiographic dye allergy status
CPT/HCPCS: 36415; 80048; 80061; 85025; 85175; 85610; 85730; 86850; 86900; 93005; 93461; 99152; 99153; C1725 ×2; C1760; C1769 ×3; C1874; C1887; C1894; C2629; C9600; J1200; J1644; J2250; J2930; J3010; J7030; J7040

== ENCOUNTER 2017-01-27 13:21 | Observation (INO) | payer MEDICARE ==
[2017-01-27 13:21] VITALS: BMI 24.4
[2017-01-27 13:57] LABS: ADD MANUAL DIFF? NO
--- NOTE | 2017-01-27 14:03 | ED PDOC ---
Arrival/HPI - General Historian: Patient <Chandler Yo - Last Filed: 01/27/17 15:53> <Alo Heredia - Last Filed: 01/27/17 16:04> - General Chief Complaint: Dizziness/Lightheaded Time Seen by Provider: 01/27/17 13:22 - History of Present Illness Narrative History of Present Illness (Text): 01/27/17 14:00 This is an 81 yo F with PMH significant for HTN, HLD and CAD with 4 stents in the past and 1 stent placed 2 days ago, presents via EMS for dizziness and elevated BP. Pt states that she was sitting in her back yard, when unprovoked she began to feel dizzy, with a headache, blurry vision and weakness. She said that the headache was mild but that she felt very weak and almost sleepy. Her was concerned and called 911. EMS read her BP with systolic ~220 and transported her to [facility]. Pt reports starting to feel back to baseline while in the ambulance and currently feels well again. She denies having had any fevers, chills, chest pain, palpitations, sob, nausea or vomiting. PMD: Gena (SrinathChandler) Past Medical History - Provider Review Nursing Documentation Reviewed: Yes - Infectious Disease Hx of Infectious Diseases: None - Tetanus Immunization Tetanus Immunization: Unknown - Cardiac Hx Hypertension: Yes Hx Pacemaker: No - Pulmonary Hx Emphysema: No Hx Pneumonia: Yes - Neurological Hx Paralysis: No - HEENT Hx HEENT Disorder: No - Renal Hx Renal Disorder: No - Endocrine/Metabolic Hx Endocrine Disorders: No - Hematological/Oncological Hx Blood Transfusions: No - Integumentary Hx Dermatological Disorder: No - Musculoskeletal/Rheumatological Hx Musculoskeletal Disorders: Yes - Gastrointestinal Hx Gastrointestinal Disorders: Yes (HEMORRHOIDS) Other/Comment: gatroenteritis - Genitourinary/Gynecological Hx Genitourinary Disorders: No - Psychiatric Hx Emotional Abuse: No Hx Physical Abuse: No Hx Substance Use: No - Surgical History Hx Cataract Extraction: Yes Hx Coronary Artery Bypass Graft: Yes Hx Coronary Stent: Yes (x5) Hx Open Heart Surgery: Yes Other/Comment: Right Hip surgery - Anesthesia Hx Anesthesia Reactions: Yes Hx Malignant Hyperthermia: No - Suicidal Assessment Feels Threatened In Home Enviroment: No <Chandler Yo - Last Filed: 01/27/17 15:53> Family/Social History - Physician Review Nursing Documentation Reviewed: Yes Family/Social History: CAD/[place] Smoking Status: Never Smoked Hx Alcohol Use: Yes (OCCASIONAL) Hx Substance Use: No Hx Substance Use Treatment: No <Chandler Yo - Last Filed: 01/27/17 15:53> Allergies/Home Meds <Chandler Yo - Last Filed: 01/27/17 15:53> <Alo Heredia - Last Filed: 01/27/17 16:04> Allergies/Adverse Reactions: Allergies codeine Allergy (Verified 01/27/17 13:27) NAUSEA radiological cotrast Allergy (Uncoded 01/27/17 13:27) URTICARIA Home Medications: Home Meds Medication Instructions Recorded Confirmed Aspirin [Aspirin] 81 mg PO DAILY 06/10/13 01/27/17 ALPRAZolam [Xanax] 0.25 mg PO TID PRN 11/04/16 01/27/17 Atorvastatin [Lipitor] 40 mg PO DAILY 11/04/16 01/27/17 Carvedilol [Coreg] 6.25 mg PO QID 11/04/16 01/27/17 Clopidogrel [Plavix] 75 mg PO DAILY 11/04/16 01/27/17 Ezetimibe [Zetia] 10 mg PO DAILY 11/04/16 01/27/17 Ramipril [Altace] 5 mg PO DAILY 11/04/16 01/27/17 Cholecalciferol (Vitamin D3) 2,000 unit PO DAILY 01/23/17 01/27/17 [Vitamin D3] Multivit-Min/FA/Lycopen/Lutein 1 tab PO DAILY 01/23/17 01/27/17 [Centrum Silver Tablet] Review of Systems - Physician Review All systems were reviewed & negative as marked: Yes - Review of Systems Constitutional: Normal. absent: Fatigue, Fevers Eyes: Normal ENT: Normal Respiratory: Normal. absent: SOB, Cough Cardiovascular: Normal. absent: Chest Pain, Palpitations Gastrointestinal: Normal. absent: Abdominal Pain, Nausea, Vomiting Genitourinary Female: Normal. absent: Dysuria, Frequency Musculoskeletal: Normal Skin: Normal. absent: Rash, Pruritis Neurological: Dizziness. absent: Headache, Focal Weakness Endocrine: Normal. absent: Diaphoresis Hemo/Lymphatic: Normal Psychiatric: Normal <Chandler Yo - Last Filed: 01/27/17 15:53> Physical Exam Vital Signs Reviewed: Yes Temperature: Afebrile Blood Pressure: Hypertensive Pulse: Regular Respiratory Rate: Normal Appearance: Positive for: Well-Appearing, Non-Toxic, Comfortable Pain Distress: None Mental Status: Positive for: Alert and Oriented X 3 - Systems Exam Head: Present: Atraumatic, Normocephalic Pupils: Present: PERRL Extroacular Muscles: Present: EOMI Respiratory/Chest: Present: Clear to Auscultation, Good Air Exchange Cardiovascular: Present: Regular Rate and Rhythm, Normal S1, S2 Abdomen: Present: Normal Bowel Sounds. No: Tenderness, Distention Back: Present: Normal Inspection Upper Extremity: Present: NORMAL PULSES, Neurovascularly Intact Lower Extremity: Present: NORMAL PULSES, Neurovascularly Intact Neurological: Present: Speech Normal, Motor Func Grossly Intact Skin: Present: Warm, Dry Psychiatric: Present: Alert, Oriented x 3 <Chandler Yo - Last Filed: 01/27/17 15:53> - Systems Exam Extroacular Muscles: Present: Other (visual acuity and visual mon intact) <Alo Heredia - Last Filed: 01/27/17 16:04> Vital Signs Temp Pulse Resp BP Pulse Ox 01/27/17 15:38 71 20 154/77 H 18 L 01/27/17 14:56 76 197/83 H 01/27/17 14:40 80 18 197/93 H 98 01/27/17 13:27 98.1 F 83 17 192/89 H 97 01/27/17 13:21 98.1 F 75 16 192/89 H 95 Medical Decision Making <Chandler Yo - Last Filed: 01/27/17 15:53> <Alo Heredia - Last Filed: 01/27/17 16:04> ED Course and Treatment: 01/27/17 14:07 81 yo F with hx of CAD and stents presents with elevated BP and complaint of weakness/dizziness/blurry vision prior to arrival Plan: - labs - EKG, CXR - CT head - Reassess and disposition 01/27/17 14:20 EKG - NSR at 80 bpm, normal axis, no st changes 01/27/17 14:[address] as read by Dr Gamez HEMORRHAGE: No intracranial hemorrhage. BRAIN: No mass effect or edema. There is a focal area of encephalomalacia in the left posterior frontal white matter. This is unchanged VENTRICLES: Unremarkable. No hydrocephalus. CALVARIUM: Unremarkable. PARANASAL SINUSES: Unremarkable as visualized. No significant inflammatory changes. MASTOID AIR CELLS: Unremarkable as visualized. No inflammatory changes. OTHER FINDINGS: None. IMPRESSION: No acute findings 01/27/17 15:31 CXR as read by Dr Gamez No active disease 01/27/17 15:46 Pt's BP improved with 0.1mg Clonidine, now 150's/70's 01/27/17 15:[address] Ramos who agrees with admission for further work up. Cardio and Neuro on consult and case discussed with them as well. Pt agreeable to admission. (Chandler Yo) 01/27/17 15:57 Patient seen and examined with medical historian. I examined patient and reviewed history with consultants and family directly. Patient had sudden onset of sensation of dizziness and blurred vision approximately noon. She had associated headache, but no history of trauma or fever, not "worst headache of life". Headache resolved. Blurred vision resolved. Denies loss of vision. Denies pain with eye movements. Denies chest pain or shortness of breath. EKG unremarkable. Patient with recent cardiac cath, denies chest pain or dyspnea. Patient persistently hypertensive in ED, but denies headache and with serial exams she is at her baseline behavior. No slurred speech or facial droop noted. Clonidine given, BP improved. Visual acuity and mon intact on re-exam, neuro exam remains intact. Case d/w Dr. Coppola, as well as neuro Dr. Pj Franco. Will admit for management of BP, serial exams. Prior carotid ultrasound results reviewed with Dr. Coppola. Patient took her plavix and aspirin today. CT head reviewed. Limitiations of imaging stuides reviewed with patient and family, although she remains comfortable with improved BP and neuro intact on re-evaluation. Will admit for monitoring, serial exams, admission accepted by Dr. Valentin Avery. 01/27/17 16:01 Patient noted to be anemic. Not hypotensive, not tachycardic. No history of melena or active bleeding or hematuria. No groin pain noted. (Alo Heredia) - Lab Interpretations Lab Results: 01/27/17 13:30 01/27/17 13:30 Lab Results 01/27/17 15:35: Urine Color Straw, Urine Appearance Clear, Urine pH 6.0, Ur Specific [place] <= 1.005, Urine Protein Negative, Urine Glucose (UA) Negative, Urine Ketones Negative, Urine Blood Negative, Urine Nitrate Negative, Urine Bilirubin Negative, Urine Urobilinogen 0.2, Ur Leukocyte Esterase Small H, Urine RBC Negative, Urine WBC 0 - 2, Ur Epithelial Cells 0 - 2, Urine Bacteria Trace 01/27/17 13:30: Sodium 138, Potassium 4.2, Chloride 103, Carbon Dioxide 28, Anion Gap 11, BUN 15, Creatinine 0.7, Est GFR ( Amer) > 60, Est GFR (Non- Af Amer) > 60, Random Glucose 92, Calcium 9.4, Magnesium 2.1, Total Bilirubin 0.6, AST 33, ALT 35, Alkaline Phosphatase 70, Lactate Dehydrogenase 429, Total Creatine Kinase 118, Troponin I < 0.01, Total Protein 7.3, Albumin 4.1, Globulin 3.2, Albumin/Globulin Ratio 1.3 01/27/17 13:30: WBC 9.8, RBC 3.34 L, Hgb 10.2 L, Hct 31.4 L, MCV 94.0, MCH 30.5 , MCHC 32.5, RDW 14.3, Plt Count 182, MPV 9.6, Gran % 75.0 H, Lymph % (Auto) 14.6 L, [place] % (Auto) 8.7 H, Eos % (Auto) 1.5, Baso % (Auto) 0.2, Gran # 7.37 H , Lymph # 1.4, [place] # 0.9 H, Eos # 0.2, Baso # 0.02 - RAD Interpretation Radiology Orders: 01/27/17 13:44 CHEST PORTABLE [RAD] Stat 01/27/17 13:47 HEAD W/O CONTRAST [CT] Stat - Medication Orders Current Medication Orders: Discontinued Medications Clonidine HCl (Catapres) 0.1 mg PO ONCE STA Stop: 01/27/17 14:46 Last Admin: 01/27/17 14:56 Dose: 0.1 mg NIHSS Scale ([place]) Time Performed: 14:00 - How Severe is the Stoke Baseline Level of Consciousness: 0=Alert LOC to Questions: 0=Both comments correct LOC to commands: 0=Obeys both correctly Best Gaze: 0=Normal Visual: 0=No visual loss Facial: 0=Normal Motor Arm - Left: 0=No drift Motor Arm - Right: 0=No drift Motor Leg - Left: 0=No drift Motor Leg - Right: 0=No drift Limb Ataxia: 0=Absent Sensory: 0=Normal Best Language: 0=No aphasia Dysarthia: 0=Normal articulation Extinction & Inattention (Neglect): 0=Normal, no object Score: 0 Risk Level: No Stroke Risk <Tyrone Herediakristie - Last Filed: 01/27/17 16:04> rTPA Inclusion/Exclusion - Refusal of Treatment Patient Refused Treatment: No - Inclusion Criteria for Altepase Patient is 18 years or Older: Yes The Clinical Diagnosis of Ischemic Stroke That is Causing a Potentially Disabling Neurological Deficit: No Time of Onset is Well Established to be Less Than 270 Minute Before Treatment Would Begin: Yes Risk/Benefit Discussed With Patient/Family Member Present: Yes - Exclusion Criteria for Altepase Uncontrolled Hypertension at Time of Treatment (Systolic BP above 185 or Diastolic BP above 110 mmHg): Yes - Warning to TPA With Conditions Following Conditions Weighed Against Anticipated Benefit: Yes Condition: Rapid Improvement Additional Condition (For 3-4.5 Hour Window): Age Greater Than 80 <Tyrone Herediakristie - Last Filed: 01/27/17 16:04> - PA / PAPER TUBE CUTTER / Resident Statement TANIA has reviewed & agrees with the documentation as recorded. TANIA has examined the patient and agrees with the treatment plan. <Alo Heredia - Last Filed: 01/27/17 16:04> Disposition/Present on Arrival - Present on Arrival Any Indicators Present on Arrival: No History of DVT/PE: No History of Uncontrolled Diabetes: No Urinary Catheter: No History of Decub. Ulcer: No History Surgical Site Infection Following: None - Disposition Have Diagnosis and Disposition been Completed?: Yes Disposition Time: 15:54 Patient Plan: Admission <Chandler Yo - Last Filed: 01/27/17 15:53> <Alo Heredia - Last Filed: 01/27/17 16:04> - Disposition Diagnosis: Dizziness, Hypertension, Anemia Disposition: HOSPITALIZED Patient Problems: Current Active Problems Problem Status Onset Anemia Acute Dizziness Acute Hypertension Acute Condition: STABLE Referrals: Rashid Avery MD [Primary Care Provider] - Follow up with primary
[2017-01-27 14:09] LABS: ALB/GLOB RATIO 1.3 (1.1-1.8); ALKALINE PHOSPHATASE 70 U/L (38-133); ALT/SGPT 35 U/L (7-56); AST/SGOT 33 U/L (15-39); BILIRUBIN,TOTAL 0.6 mg/dL (0.2-1.3); BLOOD UREA NITROGEN 15 mg/dL (7-21); CALCIUM 9.4 mg/dL (8.4-10.5); CARBON DIOXIDE 28 mmol/L (21-33); CHLORIDE 103 mmol/L (98-107); GFR AFRICAN-AMERICAN > 60; GLUCOSE,RANDOM 92 mg/dL (70-110); MAGNESIUM 2.1 mg/dL (1.7-2.2); POTASSIUM 4.2 mmol/L (3.6-5.0); SODIUM 138 mmol/L (132-148); TOTAL PROTEIN 7.3 g/dL (5.8-8.3)
[2017-01-27 14:14] LABS: BASO # 0.02 K/mm3 (0.0-2.0); BASO % 0.2 % (0.0-3.0); EOS # 0.2 (0.0-0.7); EOS % 1.5 % (1.5-5.0); GRAN # 7.37 (1.4-6.5); HEMATOCRIT 31.4 % (36.0-48.0); LYMPH # 1.4 (1.2-3.4); LYMPH % 14.6 % (22.0-35.0); MEAN CORPUSCULAR HEMOGLOBIN 30.5 pg (25.0-35.0); MEAN CORPUSCULAR HGB CONC 32.5 g/dl (31.0-37.0); MEAN PLATELET VOLUME 9.6 fl (7.0-11.0); MONO # 0.9 (0.1-0.6); MONO % 8.7 % (1.0-6.0); PLATELET COUNT 182 10^3/uL (120.0-450.0); RED CELL DISTRIBUTION WIDTH 14.3 % (11.5-14.5); WHITE BLOOD COUNT 9.8 10^3/ul (4.5-11.0)
--- NOTE | 2017-01-27 14:20 | CT ---
PROCEDURE: CT HEAD WITHOUT CONTRAST. HISTORY: elevated BP with weakness and blurry vision/CLEMENTS COMPARISON: 12/29/2011 TECHNIQUE: Axial computed tomography images were obtained through the head/brain without intravenous contrast. Radiation dose: Total exam DLP = 688 mGy-cm. This CT exam was performed using one or more of the following dose reduction techniques: Automated exposure control, adjustment of the mA and/or kV according to patient size, and/or use of iterative reconstruction technique. FINDINGS: HEMORRHAGE: No intracranial hemorrhage. BRAIN: No mass effect or edema. There is a focal area of encephalomalacia in the left posterior frontal white matter. This is unchanged VENTRICLES: Unremarkable. No hydrocephalus. CALVARIUM: Unremarkable. PARANASAL SINUSES: Unremarkable as visualized. No significant inflammatory changes. MASTOID AIR CELLS: Unremarkable as visualized. No inflammatory changes. OTHER FINDINGS: None. IMPRESSION: No acute findings
[2017-01-27 14:43] LABS: TROPONIN I < 0.01 ng/mL
--- NOTE | 2017-01-27 15:22 | RAD ---
HISTORY: elevated BP COMPARISON: 01/03/2017 FINDINGS: LUNGS: No active pulmonary disease. PLEURA: No significant pleural effusion identified, no pneumothorax apparent. CARDIOVASCULAR: Normal. OSSEOUS STRUCTURES: Sternal wires VISUALIZED UPPER ABDOMEN: Normal. OTHER FINDINGS: None. IMPRESSION: No active disease.
[2017-01-27 15:51] LABS: URINE BILIRUBIN NEGATIVE (NEGATIVE); URINE BLOOD NEGATIVE (NEGATIVE); URINE GLUCOSE (UA) NEGATIVE (NEGATIVE); URINE KETONE NEGATIVE (NEGATIVE); URINE LEUKOCYTE ESTERASE SMALL Leu/uL (NEGATIVE); URINE PROTEIN NEGATIVE mg/dL (<30 mg/dL); URINE UROBILINOGEN 0.2 E.U./dL (<1 E.U./dL)
[2017-01-27 15:52] LABS: URINE APPEARANCE CLEAR (CLEAR); URINE COLOR STRAW (YELLOW)
[2017-01-27 16:02] LABS: URINE BACTERIA TRACE (NEG); URINE EPITHELIAL CELLS 0 - 2 /hpf (0-5); URINE RBC NEGATIVE /hpf (0-2); URINE WBC 0 - 2 /hpf (0-6)
--- NOTE | 2017-01-27 17:31 | CON ---
DATE: 01/27/2017 CHIEF COMPLAINT: Lightheadedness and dizziness. HISTORY OF PRESENT ILLNESS: This 81-year-old woman with history of hypertension, hyperlipidemia, cor onary artery disease, status post 4 stents in the past and 1 stent placed 2 days ago, came in to the hospital for dizziness in terms of spinning sensation, lightheadedness, found to have elevated systol ic and diastolic blood pressures. EMS her BP systolic approximately around 220 and had some mild par esthesias, but no focal weakness. Currently, she denies any headache, any change in sense of vision, taste or smell. No paresthesias. At this time, she is feeling much better. Her blood pressure has been brought down with labetalol. She is on aspirin and Plavix, and Lipitor for stroke prevention. Cardiology will be following her. 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 Currently, her blood pre ssure right now is 154/77 which is much better than her initial. PAST MEDICAL HISTORY: History of hypertension, hyperlipidemia, coronary artery disease, status post 4 stents and 1 stent on 01/25/2017. REVIEW OF SYSTEMS: A 14-point review of systems from the chart. FAMILY HISTORY: Noncontributory. ALLERGIES: ALLERGIC TO CODEINE AND RADIOLOGICAL CONTRAST. FAMILY HISTORY: Noncontributory. CURRENT MEDICATIONS: Reviewed via nurse's reconciliation sheet. PHYSICAL EXAMINATION: VITAL SIGNS: Afebrile, pulse rate of 80, blood pressure 154/77, respiratory rate 20, oxygen 98% on r oom air. GENERAL: The patient is sitting up in bed in no acute distress. HEENT: Atraumatic, normocephalic. PERRLA. Extraocular muscles intact. NECK: Supple, no JVD, no adenopathy noted. LUNGS: Clear to auscultation. No adventitious sounds. HEART: S1, S2, normal rate and rhythm. No murmurs, rubs, or gallops. ABDOMEN: Soft, nontender, nondistended. Bowel sounds are present. EXTREMITIES: No clubbing, no cyanosis. Peripheral pulses 2+ felt bilaterally. NEUROLOGIC: The patient is alert, oriented to person, place, month and year. Speech is fluent, with out any errors. Cranial nerves II through XII are intact. MOTOR: Moves all extremities equally. Toes downgoing bilaterally. SENSORY: Light touch, pinprick, proprioception, vibration ____. DTRs are 2+ throughout. COORDINATION: Finger-nose intact. There is no pronator drift seen. Gait is deferred for now. DTRs 2+ throughout. LABORATORIES: Sodium is 138, potassium 4.2, chloride 103, carbon dioxide 28, BUN of 15, creatinine 0 .7, random glucose is 92. ASSESSMENT AND PLAN: This is an 81-year-old woman with history of coronary artery disease status pos t stents with a recent stent 2 days ago, hyperlipidemia, hypertension on aspirin 81 mg and Plavix 75 and atorvastatin of 40, came here for transient dizziness in terms of spinning sensation of room and some blurry vision and lightheadedness, found to have systolic elevation of blood pressure of more th an 220 and has gradually brought down. Her present symptoms are likely secondary to hypertensive urg ency, unlikely a TIA at this time. Continue with aspirin 81, Plavix 75, and atorvastatin 40 mg for s troke prevention. We will monitor just overnight and follow with her protozoology teacher's recommendations. Thank you, will sign off. Archie Franco MD cc: [id number] TT: 01/27/2017 17:30:45 Confirmation # [id number] Dictation # [id number] jn
--- NOTE | 2017-01-28 10:05 | CARD ---
APPROVED REPORT EKG Measurement Heart [id number] ND [id number] <Conclusion> Normal sinus rhythm RVCD IMI, age unknown
--- NOTE | 2017-01-28 10:18 | CON ---
DATE: 01/28/2017 INDICATIONS: Hypertension, status post recent coronary intervention. HISTORY OF PRESENT ILLNESS: This is an 81-year-old woman who underwent a coronary intervention several days ago for an in-stent restenosis in the bypass graft to the right coronary artery. This was successfully stented. She was home convalescing when she began to experience symptoms including headache, dizziness and blurry or narrow division. Her symptoms persisted. Her took her to the Emergency Room. She was found to be hypertensive with a systolic blood pressure in the 200-220 range. She was treated in the Emergency Room with improvement in her symptoms, lowering of her blood pressure. Workup included a negative CT scan of the head. She was admitted to telemetry. This morning, she feels completely well, sitting in bed, on telemetry with a blood pressure in the 170-180 range systolic this morning. There was no chest pain, orthopnea, PND, syncope, presyncope, vertigo, diplopia, speech abnormality, palpitations, edema, claudication, fever, chills, cough, sputum production, hemoptysis, abdominal pain, nausea, vomiting, diarrhea, constipation, melena. PAST MEDICAL HISTORY: Notable for coronary artery disease. She has prior coronary bypass operation and coronary interventions. Recently, she developed typical chest pain and underwent a cardiac catheterization with an intervention on in-stent restenosis of the saphenous vein bypass graft to the right coronary artery. This was a successful procedure. Mild aortic stenosis was noted at the time of catheterization. There is a history of hyperlipidemia and cerebrovascular disease as well. Additional diagnoses include gastroenteritis, hemorrhoids, right hip surgery, but no rheumatic fever, congestive heart failure , arrhythmia, stroke, TIA or gout. There is no history of diabetes. MEDICATIONS: At the time of admission include ramipril, aspirin, Coreg, Lipitor , Plavix, vitamin D3, Zetia and Xanax. ALLERGIES: SHE NOTES AN ALLERGY TO CODEINE, AND IV CONTRAST. SOCIAL HISTORY: She lives at home with her . She does not smoke or drink alcohol significantly. FAMILY HISTORY: Noncontributory. REVIEW OF SYSTEMS: A 10-point review of systems is otherwise unremarkable except as noted above. PHYSICAL EXAMINATION: GENERAL: She is a well-developed woman sitting on her bed in telemetry, in no acute distress. VITAL SIGNS: Notable for sinus rhythm at 67 beats per minute. She is afebrile with a blood pressure of 168/75. additional readings included 105/48, 144/82 and 136/61, respirations 20, O2 sat 96%-98% on room air. HEENT: Reveals no neck vein distention, thyromegaly, or carotid bruits. Mucous membranes are moist. Conjunctivae are pink. NECK: Supple. LUNGS: Segura clear. HEART: Revealed normal 1st and 2nd heart sounds. There is a systolic ejection murmur heard best in the aortic space along the upper left sternal border. ABDOMEN: Soft, bowel sounds present. No mass, organomegaly, tenderness, rebound, or guarding. No CVA tenderness. No palpable abdominal aortic aneurysm. EXTREMITIES: Revealed no cyanosis, clubbing, or edema. NEUROLOGIC: She is awake, alert and oriented. SKIN: Warm and dry. No rash or cellulitis. PSYCHIATRIC: Normal as to mood and affect. LABORATORY AND IMAGING: A portable chest x-ray revealed no active disease. CT scan of the head was unremarkable. EKG demonstrates regular sinus rhythm, right ventricular conduction delay, poor R-wave progression, no acute changes. No change from a prior EKG. CBC is unremarkable. Hemoglobin 10.2, hematocrit 31.4. Electrolytes, BUN, creatinine, blood sugar, magnesium, LFTs, CK troponin all unremarkable. Urinalysis is noted. IMPRESSION: The patient is an 81-year-old woman with recent coronary intervention who developed vague neurologic symptoms associated with severe headache and elevated blood pressures. Her symptoms have resolved. Her headache has resolved. Blood pressure has improved with medical treatments. At this time, I agree with plans. She is on telemetry. She is getting her usual medications including ramipril, Coreg, aspirin, Lipitor, Plavix, Xanax, and Zetia. I would add Norvasc 5 mg daily. She can be out of bed and ambulate. She is aware of a no added salt, low fat diet and the need to take Plavix and aspirin. Plavix will be continued for at least 1 year. She is undergoing a neurologic evaluation by Dr. Franco. If she ambulates without further symptoms and if her blood pressure is more moderate, she can be cleared for discharge home with close outpatient followup, blood pressure monitoring and titration. She will, of course, keep us informed of any symptoms. I will follow along with you. I will make additional recommendations based on her clinical course. Charlie Coppola MD cc: [id number] TT: 01/28/2017 10:17:53 Confirmation # [id number] Dictation # [id number] jn MTDD
[2017-01-28 10:22] VITALS: RESP 18; O2SAT 96
[2017-01-28 12:40] VITALS: BP 159/63; PULSE 62; TEMP 98.1
--- NOTE | 2017-01-28 13:53 | HP ---
HISTORY OF PRESENT ILLNESS: The patient is an 81-year-old female who was admitted to [facility] with hypertensive crisis. The patient had undergone a coronary catheterization with violetta flowers of an occluded right coronary artery bypass 2 days ago. She tolerated the procedure well, was myriam e, was sitting in the sun in her backyard with her when she developed a feeling of dizziness, headache. She went inside the house, blurred vision ensued and increasing weakness. The patient be came near syncopal. Her called 911. According to the EMS, her systolic blood pressure was 2 20. She was therefore transported to the Emergency Room and subsequently admitted. PAST MEDICAL HISTORY: Known to be positive for pneumonia in the past, hypertension, coronary artery bypass grafting, stenting as mentioned above. She does have a history of gastroenteritis and hemorrh oids in the past. She is status post right hip surgery. SOCIAL HISTORY: Never smoked, drinks alcohol occasionally. She is . ALLERGIES: KNOWN TO BE ALLERGIC TO CODEINE AND RADIOLOGIC CONTRAST MATERIAL. MEDICATIONS: On admission included aspirin 81 mg a day, Xanax 0.25 mg 3 times a day as needed, Lipit or 40 mg, Coreg 6.25 mg, Plavix 75 mg, Zetia 10 mg, Altace 2 mg, vitamin D, and multivitamin. REVIEW OF SYSTEMS: Otherwise, unremarkable. PHYSICAL EXAMINATION: HEENT: Unremarkable. NECK: Supple, with no lymphadenopathy, no goiter. LUNGS: Clear to auscultation and percussion. HEART: Regular. ABDOMEN: Soft, nontender with no organomegaly. GENITALIA: Normal for age and sex. EXTREMITIES: Free of cyanosis, clubbing or edema. NEUROLOGIC: The patient is awake, alert, and oriented with no focal neurological signs. VITAL SIGNS: In the Emergency Room, her blood pressure was 192/89, heart rate was 75 and she was afe brile at 98.1 degrees Fahrenheit. LABORATORY STUDIES: CAT scan of the head was performed and this was normal. EKG showed no active di sease. The white blood cell count is 9.8, hemoglobin and hematocrit are 10.2 and 31.4 respectively, platelet count is 182. Sodium is 138, potassium 4.2. Blood urea nitrogen 15, creatinine 0.7. Nonfa sting glucose is 92. Urinalysis is essentially negative with only a small amount of leukocyte estera se noted. In the Emergency Room, the patient was treated with 0.1 mg of clonidine. She is to be admitted. Her jitterbug operator, Dr. Coppola and Dr. Cline are called for consult. We are also requesting a neurolog ical consult from Dr. Franco. Felton Avery MD cc: [id number] TT: 01/28/2017 13:51:59 jn
--- NOTE | 2017-01-28 14:39 | DS ---
The patient is an 81-year-old female who presented to the Emergency Room yesterday complaining of diz ziness, lightheadedness, blurred vision. She was thought to be in hypertensive crisis with the systo lic blood pressure of 220 as per squad when they were called. In the Emergency Room, her systolic bl ood pressure was 190. The patient had undergone coronary catheterization with dilatation of a stenot ic right coronary artery graft 2 days earlier and the patient was home doing well. The onset of her symptoms came when the patient was at rest in the backyard. There was no history of trauma, emotiona l stress. The patient was treated with clonidine in the Emergency Room. During her hospital stay, s he was evaluated by Dr. Franco who felt that this was not a transient ischemic attack but rather then a reaction to a hypertensive crisis. She was also seen by Dr. Coppola and Dr. Cline, her cardiolo gists, who added amlodipine 5 mg once a day to her regimen. When seen today, the patient is awake, a lert, and oriented. She is in good spirits. Her is at bedside. She had an uneventful [facility] stay. She voices no complaints. This morning, her blood pressure is 168/75, heart rate is 67 a nd she is afebrile. In the Emergency Room, her CAT scan of her head was negative. The blood work from yesterday was esse ntially negative. So, the patient is to be discharged to home. Prescription for amlodipine 5 mg once a day was called into a local [facility]'s pharmacy and to be added to her regimen. She is to continue taking Altace 5 mg, Coreg 12.5 mg twice a day, Ecotrin 81 mg, Lipitor 40 mg, Plavix 75 mg, Xanax 0.25 mg 3 times a da y as needed, and Zetia 10 mg once a day. She will follow up with us in an office visit in 1 week as well as with her control chemist in 1-2 weeks. FINAL DIAGNOSES: 1. Hypertension. 2. Dizziness. 3. Mild anemia. 4. Near syncope. 5. History of gastroenteritis. Felton Avery MD cc: [id number] TT: 01/28/2017 14:37:57 jn
[2017-01-29] MEDS ORDERED: Non Formulary Medication (Multivit-Min/Fa/Lycopen/Lutein [Centrum Silver Tablet] 1 TAB) PO SCH (10:00)
== END 2017-01-28 14:05 | disposition home or self-care (01) ==
LOC: ED 13:21 → ERH 15:53 → 2RNO 18:26
PROVIDERS: ADMIT Internal Medicine; ATTEND Internal Medicine
DX: I16.9 Hypertensive crisis, unspecified (principal); R42 Dizziness and giddiness; D64.9 Anemia, unspecified; R55 Syncope and collapse; I35.0 Nonrheumatic aortic (valve) stenosis; I25.10 Atherosclerotic heart disease of native coronary artery without angina pectoris; E78.5 Hyperlipidemia, unspecified; Z79.82 Long term (current) use of aspirin; Z95.1 Presence of aortocoronary bypass graft; Z87.01 Personal history of pneumonia (recurrent); Z88.5 Allergy status to narcotic agent; Z95.5 Presence of coronary angioplasty implant and graft; Z87.19 Personal history of other diseases of the digestive system
CPT/HCPCS: 70450; 71010; 80053; 81001; 82550; 83615; 83735; 84484; 85025; 87086; 93005; 99285; G0378

== ENCOUNTER 2017-03-19 18:41 | Observation (INO) | payer MEDICARE ==
--- NOTE | 2017-03-19 19:02 | ED PDOC ---
Arrival/HPI - General Chief Complaint: Palpitations Time Seen by Provider: 03/19/17 18:58 Historian: Patient - History of Present Illness Narrative History of Present Illness (Text): 03/19/17 18:59 Verenice Broden is a 82 year old female, whose past medical history includes CABG, stents, hypertension, hyperlipidemia, and SVT, presents to the emergency department complaining of sudden onset palpitations which began 30 minutes prior to arrival. States that symptoms are similar to previous episodes of SVT. Denies any chest pain or shortness of breath. Denies fever, chills, headache, dizziness, nausea, vomiting, urinary symptoms, or any other complaints at this time. PMD: Transport Coordinator: Dr. Coppola Time/Duration: 1/2 hour Symptom Onset: Sudden Symptom Course: Unchanged Activities at Onset: Light Past Medical History - Provider Review Nursing Documentation Reviewed: Yes - Infectious Disease Hx of Infectious Diseases: None - Tetanus Immunization Tetanus Immunization: Unknown - Reproductive Menopause: Yes - Cardiac Hx Hypertension: Yes Hx Pacemaker: No - Pulmonary Hx Emphysema: No Hx Pneumonia: Yes - Neurological Hx Neurological Disorder: Yes (SYNCOPE) Hx Dizziness: Yes - HEENT Hx HEENT Disorder: No - Renal Hx Renal Disorder: No - Endocrine/Metabolic Hx Endocrine Disorders: No - Hematological/Oncological Hx Blood Disorders: No - Integumentary Hx Dermatological Disorder: No - Musculoskeletal/Rheumatological Hx Falls: No - Gastrointestinal Hx Gastrointestinal Disorders: Yes (HEMORRHOIDS) Other/Comment: gatroenteritis - Genitourinary/Gynecological Hx Genitourinary Disorders: No - Psychiatric Hx Emotional Abuse: No Hx Physical Abuse: No Hx Substance Use: No - Surgical History Other/Comment: CABG 1998, CARDIAC STNETS X 4, - Anesthesia Hx Anesthesia: Yes Hx Anesthesia Reactions: Yes Hx Malignant Hyperthermia: No - Suicidal Assessment Feels Threatened In Home Enviroment: No Family/Social History - Physician Review Nursing Documentation Reviewed: Yes Family/Social History: No Known Family HX Smoking Status: Never Smoked Hx Alcohol Use: No Hx Substance Use: No Hx Substance Use Treatment: No Allergies/Home Meds Allergies/Adverse Reactions: Allergies codeine Allergy (Verified 03/19/17 18:46) NAUSEA radiological cotrast Allergy (Uncoded 01/27/17 13:27) URTICARIA Home Medications: Home Meds Medication Instructions Recorded Confirmed Aspirin [Aspirin] 81 mg PO DAILY 06/10/13 03/19/17 ALPRAZolam [Xanax] 0.25 mg PO TID PRN 11/04/16 03/19/17 Atorvastatin [Lipitor] 40 mg PO DAILY 11/04/16 03/19/17 Carvedilol [Coreg] 12.5 mg PO BID 11/04/16 01/28/17 Clopidogrel [Plavix] 75 mg PO DAILY 11/04/16 03/19/17 Ezetimibe [Zetia] 10 mg PO DAILY 11/04/16 03/19/17 Ramipril [Altace] 5 mg PO DAILY 11/04/16 03/19/17 Cholecalciferol (Vitamin D3) 2,000 unit PO DAILY 01/23/17 03/19/17 [Vitamin D3] Multivit-Min/FA/Lycopen/Lutein 1 tab PO DAILY 01/23/17 03/19/17 [Centrum Silver Tablet] Review of Systems - Physician Review All systems were reviewed & negative as marked: Yes - Review of Systems Constitutional: Normal. absent: Fatigue, Fevers Respiratory: Normal. absent: SOB, Cough, Sputum Cardiovascular: Palpitations. absent: Chest Pain Gastrointestinal: absent: Abdominal Pain, Diarrhea, Nausea, Vomiting Neurological: Normal. absent: Headache, Dizziness Physical Exam Vital Signs Reviewed: Yes Vital Signs Pulse Resp BP BP Pulse Ox 03/19/17 19:17 157/90 H 03/19/17 19:02 86 18 157/90 H 98 03/19/17 18:44 153 H 19 96 Temperature: Afebrile Blood Pressure: Normal Pulse: Tachycardic Respiratory Rate: Normal Appearance: Positive for: Well-Appearing, Non-Toxic, Comfortable Pain Distress: None Mental Status: Positive for: Alert and Oriented X 3 - Systems Exam Head: Present: Atraumatic, Normocephalic Pupils: Present: PERRL Conjunctiva: Present: Normal Mouth: Present: Moist Mucous Membranes Respiratory/Chest: Present: Clear to Auscultation, Good Air Exchange. No: Respiratory Distress, Accessory Muscle Use Cardiovascular: Present: Normal S1, S2, Tachycardic. No: Murmurs Abdomen: Present: Normal Bowel Sounds. No: Tenderness, Distention, Peritoneal Signs Upper Extremity: Present: Normal Inspection. No: Cyanosis, Edema Lower Extremity: Present: Normal Inspection. No: Edema Neurological: Present: GCS=15, CN II-XII Intact, Speech Normal, Motor Func Grossly Intact, Normal Sensory Function Skin: Present: Warm, Dry, Normal Color. No: Rashes Psychiatric: Present: Alert, Oriented x 3, Normal Insight, Normal Concentration Medical Decision Making ED Course and Treatment: 03/19/17 19:04 Impression: A 82 year old female who presents to the emergency department for evaluation of palpitations. Differential Diagnosis included but are not limited to: palpitations r/o SVT vs. sinus tach vs. ACS Plan: -- EKG -- Labs, cardiac enzymes -- TSH -- CXR -- Adenosine -- Reassess and disposition Progress Notes: Initial EKG interpreted by me: SVT @ 148 bpm. Repeat EKG post 6mg Adenosine: Sinus Tachycardia @ [address] depressions noted in V2-V6. Q waves in leads III and aVF. New from 01/25/17 and 01/27/17 03/19/17 19:13 repeat EKG interpreted by me shows: NSR @ 86 bpm with 1st degree AV block. No ST depressions. Similar to previous EKG 03/19/17 20:[address] Dexter Avery who will place the patient on observation to telemetry. HR still NSR at 80's. - Critical Care Critical Care Minutes: 30 minutes Narrative Critical Care (Text): 03/19/17 19:13 SVT management - Lab Interpretations Lab Results: 03/19/17 18:45 03/19/17 18:45 Lab Results 03/19/17 18:45: TSH 3rd Generation 2.92 03/19/17 18:45: Sodium 138, Potassium 4.0, Chloride 103, Carbon Dioxide 25, Anion Gap 14, BUN 18, Creatinine 0.7, Est GFR ( Amer) > 60, Est GFR (Non- Af Amer) > 60, Random Glucose 120 H, Calcium 9.4, Magnesium 2.0, Total Bilirubin 0.5, AST 43 H, ALT 31, Alkaline Phosphatase 77, Lactate Dehydrogenase 522, Total Creatine Kinase 31 L, Troponin I < 0.01, Total Protein 8.0, Albumin 4.5, Globulin 3.4, Albumin/Globulin Ratio 1.3 03/19/17 18:45: PT 10.7, INR 0.99, APTT 26.4 03/19/17 18:45: WBC 7.4 D, RBC 4.01, Hgb 12.5, Hct 36.9, MCV 92.0, MCH 31.2, MCHC 33.9, RDW 13.7, Plt Count 227, MPV 9.7, Gran % 68.5 H, Lymph % (Auto) 17.6 L, Blaine % (Auto) 9.5 H, Eos % (Auto) 3.9, Baso % (Auto) 0.5, Gran # 5.09, Lymph # 1.3, Blaine # 0.7 H, Eos # 0.3, Baso # 0.04 I have reviewed the lab results: Yes Interpretation: Abnormal lab values - RAD Interpretation Radiology Orders: 03/19/17 18:59 CHEST PORTABLE [RAD] Stat - Medication Orders Current Medication Orders: Discontinued Medications Adenosine (Adenosine 6 Mg/2 Ml Inj) 6 mg IVP STAT STA Stop: 03/19/17 19:01 Last Admin: 03/19/17 19:01 Dose: 6 mg - Scribe Statement The provider has reviewed the documentation as recorded by the Ashlee Viera Provider Attestation: Provider Scribe Attestation: All medical record entries made by the Austinibe were at my direction and personally dictated by me. I have reviewed the chart and agree that the record accurately reflects my personal performance of the history, physical exam, medical decision making, and the department course for this patient. I have also personally directed, reviewed, and agree with the discharge instructions and disposition. Disposition/Present on Arrival - Present on Arrival Any Indicators Present on Arrival: No History of DVT/PE: No History of Uncontrolled Diabetes: No Urinary Catheter: No History of Decub. Ulcer: No History Surgical Site Infection Following: None - Disposition Have Diagnosis and Disposition been Completed?: Yes Diagnosis: SVT (supraventricular tachycardia) Disposition Time: 20:28 Patient Plan: Admission Condition: FAIR Referrals: Rashid Avery MD [Primary Care Provider] - Follow up with primary Forms: [employer] ([place])
[2017-03-19 19:04] LABS: ADD MANUAL DIFF? NO
[2017-03-19 19:12] LABS: BASO # 0.04 K/mm3 (0.0-2.0); BASO % 0.5 % (0.0-3.0); EOS # 0.3 (0.0-0.7); EOS % 3.9 % (1.5-5.0); GRAN # 5.09 (1.4-6.5); GRAN % 68.5 % (50.0-68.0); HEMATOCRIT 36.9 % (36.0-48.0); LYMPH # 1.3 (1.2-3.4); LYMPH % 17.6 % (22.0-35.0); MEAN CORPUSCULAR HEMOGLOBIN 31.2 pg (25.0-35.0); MEAN CORPUSCULAR HGB CONC 33.9 g/dl (31.0-37.0); MEAN PLATELET VOLUME 9.7 fl (7.0-11.0); MONO # 0.7 (0.1-0.6); MONO % 9.5 % (1.0-6.0); PLATELET COUNT 227 10^3/uL (120.0-450.0); RED CELL DISTRIBUTION WIDTH 13.7 % (11.5-14.5); WHITE BLOOD COUNT 7.4 10^3/ul (4.5-11.0)
[2017-03-19 19:28] LABS: INR 0.99 (0.93-1.08); PARTIAL THROMBOPLASTIN TIME 26.4 Seconds (23.7-30.8)
[2017-03-19 19:35] LABS: TROPONIN I < 0.01 ng/mL
[2017-03-19 19:40] LABS: ALB/GLOB RATIO 1.3 (1.1-1.8); ALKALINE PHOSPHATASE 77 U/L (38-133); ALT/SGPT 31 U/L (7-56); AST/SGOT 43 U/L (15-39); BILIRUBIN,TOTAL 0.5 mg/dL (0.2-1.3); BLOOD UREA NITROGEN 18 mg/dL (7-21); CALCIUM 9.4 mg/dL (8.4-10.5); CARBON DIOXIDE 25 mmol/L (21-33); CHLORIDE 103 mmol/L (95-110); GFR AFRICAN-AMERICAN > 60; GLUCOSE,RANDOM 120 mg/dL (70-110); SODIUM 138 mmol/L (132-148)
[2017-03-19 22:34] VITALS: BMI 23.7
--- NOTE | 2017-03-20 09:31 | RAD ---
HISTORY: Palpitations. COMPARISON: 01/27/2017. FINDINGS: LUNGS: No active pulmonary disease. PLEURA: No significant pleural effusion identified, no pneumothorax apparent. CARDIOVASCULAR: No radiographic findings to suggest acute or significant cardiovascular disease. OSSEOUS STRUCTURES: No significant abnormalities. VISUALIZED UPPER ABDOMEN: Normal. OTHER FINDINGS: None. IMPRESSION: No active disease.
[2017-03-20 12:12] VITALS: RESP 18
--- NOTE | 2017-03-20 17:20 | CON ---
DATE: 03/20/2017 REASON FOR CONSULTATION: SVT. HISTORY OF PRESENT ILLNESS: This is an 82-year-old woman, well known to me, admitted to the emergency room yesterday when she presented with sudden palpitations, beginning 30 minutes prior to arrival. She was found to be in SVT and given adenosine in the emergency room. She converted to sinus tachycardia and sinus rhythm. She was admitted to telemetry. She had no further episodes of SVT. This morning, she feels well. There was no chest pain, shortness of breath, orthopnea, PND, syncope, presyncope, vertigo, fever, chills, cough, sputum production, hemoptysis, abdominal pain, nausea, vomiting, diarrhea, constipation or melena. Of note, she missed a couple of doses of Coreg prior to the onset of SVT. PAST MEDICAL HISTORY: Complex. She has remote coronary bypass surgery complicated by perioperative myocardial infarction; over the years, she has had coronary interventions including recently in 01/2017. The saphenous vein bypass graft to the right coronary artery was stented. At that time, she was noted to have severe clark's point three-vessel disease with a patent HUTSON to the LAD and patent stent to the circumflex artery. Mild aortic stenosis was also discovered. Additional past medical history includes hypertension, cerebrovascular disease, hyperlipidemia, hemorrhoids, gastritis, right hip surgery, and hysterectomy. MEDICATIONS: At the time of admission include Altace, aspirin, carvedilol, Lipitor, Plavix, vitamin D, Xanax p.r.n. and Zetia. ALLERGIES: CODEINE AND IV CONTRAST. SOCIAL HISTORY: She lives at home with her . She is ambulatory. She does not smoke cigarettes. She does not drink alcohol significantly. FAMILY HISTORY: Noncontributory. REVIEW OF SYSTEMS: A 10-point review of systems is otherwise unremarkable except as noted above. PHYSICAL EXAMINATION: GENERAL: She is a well-developed woman lying in bed, on telemetry, in no acute distress. She is in sinus rhythm to sinus bradycardia 65 beats per minute. VITAL SIGNS: She is afebrile, blood pressure 150/67, respirations 20, O2 saturation 96%-98% on room air. HEENT AND NECK: Reveals no neck vein distension, thyromegaly, or carotid bruits. Mucous membrane is moist. Conjunctivae pink. Neck is supple. LUNGS: Lung mon clear. HEART: Revealed normal first and second heart sounds with a soft systolic murmur in the aortic space along the left sternal border. The PMI was not displaced. ABDOMEN: Soft. Bowel sounds are present. No mass, organomegaly, tenderness, rebound, guarding, CVA tenderness or palpable abdominal aortic aneurysm. EXTREMITIES: Revealed no cyanosis, clubbing, or edema. NEUROLOGIC: She is awake, alert, oriented, and intact. PSYCHIATRIC: Normal as to mood and affect. SKIN: Warm and dry. No rashes or cellulitis. LABORATORY DATA AND IMAGING: A portable chest x-ray reveals no active disease. EKG show initially SVT. Followup EKGs shows sinus tachycardia and sinus rhythm with PVC. There is a left axis deviation, right ventricular conduction delay, nonspecific ST wave changes. CBC was unremarkable. PT, PTT, INR unremarkable. Electrolytes, BUN, creatinine, and blood sugar unremarkable. Magnesium normal. LFTs basically normal with an AST slightly elevated at 43. CK 31. Two troponins are negative. TSH is normal. IMPRESSION AND PLAN: Verenice Borden is an 82-year-old woman with recurrent supraventricular tachycardia after missing doses of carvedilol. She was cardioverted with adenosine and has remained in sinus rhythm. There is no evidence of acute ischemia, myocardial infarction by two troponins and EKGs. At this time, I agree with the current plans. She can be out of bed and ambulate. I resume her usual medications including Coreg, aspirin, ramipril, Lipitor, Plavix, and Zetia. I would anticipate early discharge and outpatient followup. I have discussed the possibility of SVT ablation with her. She did not seem amenable to this at this time. Hopefully with resumption of her Coreg and more regular dosing, she will avoid future episodes. If there are future episodes, alternative medications and/or EP evaluation with possible ablation will be considered at that time. Charlie Coppola MD [facility]
[2017-03-20 17:28] VITALS: BP 151/67; TEMP 97.2; O2SAT 99
[2017-03-20 18:08] VITALS: PULSE 72
--- NOTE | 2017-03-20 18:42 | CARD ---
APPROVED REPORT EKG Measurement Heart [id number] <Conclusion> Sinus rhythm with 1st degree AV block Left ventricular hypertrophy with repolarization abnormality Abnormal ECG
--- NOTE | 2017-03-20 18:42 | CARD ---
APPROVED REPORT EKG Measurement Heart [id number] <Conclusion> Sinus rhythm with 1st degree AV block with occasional premature ventricular complexes Left ventricular hypertrophy with repolarization abnormality Abnormal ECG
--- NOTE | 2017-03-20 18:42 | CARD ---
APPROVED REPORT EKG Measurement Heart [id number] <Conclusion> Sinus tachycardia Inferior infarct, age undetermined ST & T wave abnormality, consider lateral ischemia Abnormal ECG
== END 2017-03-20 21:06 | disposition home or self-care (01) ==
LOC: ED 18:41 → ERH 20:23 → 2RNO 22:13
PROVIDERS: ADMIT Internal Medicine; ATTEND Internal Medicine
DX: I47.1 Supraventricular tachycardia (principal); I67.9 Cerebrovascular disease, unspecified; I10 Essential (primary) hypertension; E78.5 Hyperlipidemia, unspecified; K64.9 Unspecified hemorrhoids; K29.70 Gastritis, unspecified, without bleeding; I25.2 Old myocardial infarction; Z95.1 Presence of aortocoronary bypass graft; I35.0 Nonrheumatic aortic (valve) stenosis
CPT/HCPCS: 36415; 71010; 80053; 82550; 83615; 83735; 84443; 84484; 85025; 85610; 85730; 93005; 96374; 99285; G0378; J0153

== ENCOUNTER 2017-04-07 18:02 | Emergency (ER) | payer MEDICARE ==
[2017-04-07 18:20] VITALS: TEMP 97.6; BMI 23.6
[2017-04-07] MEDS ORDERED: Sodium Chloride 0.9% 1,000 ML IV STA (18:30)
--- NOTE | 2017-04-07 19:01 | ED PDOC ---
Arrival/HPI - General Chief Complaint: High Blood Pressure Time Seen by Provider: 04/07/17 18:23 Historian: Patient - History of Present Illness Narrative History of Present Illness (Text): 04/07/17 19:03 An 82 year old female, whose past medical history includes hypertension and moderate arthritis, presents to the emergency department complaining of vomiting since this morning. Patient reports nausea and dizziness last night after taking Tramadol medication that was prescribed for leg pain. Reports first time taking medication. Notes a couple episodes of vomiting today. Notes generalized weakness but denies any abdominal pain or any other complaints at this time. Symptom Onset: Sudden Symptom Course: Unchanged Activities at Onset: Rest Context: Home Past Medical History - Provider Review Nursing Documentation Reviewed: Yes - Infectious Disease Hx of Infectious Diseases: None - Tetanus Immunization Tetanus Immunization: Unknown - Cardiac Hx Hypertension: Yes Hx Pacemaker: No - Pulmonary Hx Emphysema: No Hx Pneumonia: Yes - Neurological Hx Neurological Disorder: Yes (SYNCOPE) Hx Dizziness: Yes - HEENT Hx HEENT Disorder: No - Renal Hx Renal Disorder: No - Endocrine/Metabolic Hx Endocrine Disorders: No - Hematological/Oncological Hx Blood Disorders: No - Integumentary Hx Dermatological Disorder: No - Musculoskeletal/Rheumatological Hx Falls: No - Gastrointestinal Hx Gastrointestinal Disorders: Yes (HEMORRHOIDS) Other/Comment: gatroenteritis - Genitourinary/Gynecological Hx Genitourinary Disorders: No - Psychiatric Hx Emotional Abuse: No Hx Physical Abuse: No Hx Substance Use: No - Surgical History Other/Comment: CABG 1998, CARDIAC STENTS X 5. Colonoscopy. Cataract surgery. R arm surgery - Anesthesia Hx Anesthesia: Yes Hx Anesthesia Reactions: Yes Hx Malignant Hyperthermia: No - Suicidal Assessment Feels Threatened In Home Enviroment: No Family/Social History - Physician Review Nursing Documentation Reviewed: Yes Family/Social History: No Known Family HX Smoking Status: Never Smoked Hx Alcohol Use: No Hx Substance Use: No Hx Substance Use Treatment: No Allergies/Home Meds Allergies/Adverse Reactions: Allergies codeine Allergy (Verified 03/19/17 18:46) NAUSEA radiological cotrast Allergy (Uncoded 01/27/17 13:27) URTICARIA Home Medications: Home Meds Medication Instructions Recorded Confirmed Aspirin [Aspirin] 81 mg PO DAILY 06/10/13 04/07/17 ALPRAZolam [Xanax] 0.25 mg PO TID PRN 11/04/16 04/07/17 Atorvastatin [Lipitor] 40 mg PO DAILY 11/04/16 04/07/17 Carvedilol [Coreg] 12.5 mg PO BID 11/04/16 04/07/17 Clopidogrel [Plavix] 75 mg PO DAILY 11/04/16 04/07/17 Ezetimibe [Zetia] 10 mg PO DAILY 11/04/16 04/07/17 Ramipril [Altace] 5 mg PO DAILY 11/04/16 04/07/17 Cholecalciferol (Vitamin D3) 2,000 unit PO DAILY 01/23/17 04/07/17 [Vitamin D3] Multivit-Min/FA/Lycopen/Lutein 1 tab PO DAILY 01/23/17 04/07/17 [Centrum Silver Tablet] amLODIPine [Norvasc] 1 tab PO DAILY 04/07/17 04/07/17 Review of Systems - Review of Systems Constitutional: absent: Fevers Eyes: absent: Vision Changes Respiratory: absent: SOB, Cough Cardiovascular: absent: Chest Pain Gastrointestinal: Nausea, Vomiting. absent: Abdominal Pain Neurological: Dizziness. absent: Headache, Focal Weakness Psychiatric: Anxiety Physical Exam Vital Signs Reviewed: Yes Vital Signs Temp Pulse Resp BP Pulse Ox 04/07/17 20:59 67 16 129/51 L 97 04/07/17 20:24 76 16 153/76 H 98 04/07/17 19:35 83 16 181/95 H 96 04/07/17 18:18 97.6 F 68 18 184/47 H 96 Appearance: Positive for: Well-Appearing, Non-Toxic, Comfortable Pain Distress: None Mental Status: Positive for: Alert and Oriented X 3 - Systems Exam Head: Present: Atraumatic, Normocephalic Pupils: Present: PERRL Extroacular Muscles: Present: EOMI Conjunctiva: Present: Normal Mouth: Present: Moist Mucous Membranes Neck: Present: Normal Range of Motion Respiratory/Chest: Present: Clear to Auscultation, Good Air Exchange. No: Respiratory Distress, Accessory Muscle Use Cardiovascular: Present: Regular Rate and Rhythm, Normal S1, S2. No: Murmurs Abdomen: Present: Normal Bowel Sounds. No: Tenderness, Distention, Peritoneal Signs Back: Present: Normal Inspection Upper Extremity: Present: Normal Inspection. No: Cyanosis, Edema Lower Extremity: Present: Normal Inspection. No: Edema Neurological: Present: GCS=15, CN II-XII Intact, Speech Normal Skin: Present: Warm, Dry, Normal Color. No: Rashes Psychiatric: Present: Alert, Oriented x 3, Normal Insight, Normal Concentration Medical Decision Making ED Course and Treatment: 04/07/17 18:43 EKG: Ordered, reviewed, and independently interpreted the EKG. Rate : 72 BPM Rhythm : NSR Interpretation : LVH, no acute ischemia Comparison : No significant change from EKG on 03/19/17 04/07/17 20:49 on re-eval the pt says she feels "one hundred times better." disc results, impression, plan for f/u and rtr. - Lab Interpretations Lab Results: 04/07/17 18:45 04/07/17 18:45 Lab Results 04/07/17 18:45: WBC 9.7 D, RBC 3.71, Hgb 11.7 L, Hct 33.9 L, MCV 91.4, MCH 31.5 , MCHC 34.5, RDW 13.5, Plt Count 192, MPV 9.0, Gran % 86.4 H, Lymph % (Auto) 6.1 L, [place] % (Auto) 6.0, Eos % (Auto) 1.3 L, Baso % (Auto) 0.2, Gran # 8.35 H, Lymph # 0.6 L, [place] # 0.6, Eos # 0.1, Baso # 0.02, Neutrophils % (Manual) 89 H, Band Neutrophils % 4 H, Lymphocytes % (Manual) 4 L, Monocytes % (Manual) 1, Eosinophils % (Manual) 2, Platelet Evaluation Normal, Ovalocytes Slight 04/07/17 18:45: Sodium 139, Potassium 4.2, Chloride 99, Carbon Dioxide 26, Anion Gap 18, BUN 12, Creatinine 0.5, Est GFR ( Amer) > 60, Est GFR (Non- Af Amer) > 60, Random Glucose 109, Calcium 9.2, Total Bilirubin 0.8, AST 55 H, ALT 37, Alkaline Phosphatase 89, Troponin I < 0.01, Total Protein 7.8, Albumin 4.6, Globulin 3.2, Albumin/Globulin Ratio 1.4 I have reviewed the lab results: Yes - EKG Interpretation Interpreted by ED Physician: Yes Type: 12 lead EKG - Medication Orders Current Medication Orders: Discontinued Medications Alprazolam (Xanax) 0.25 mg PO STAT STA PRN Reason: Protocol Stop: 04/07/17 19:49 Last Admin: 04/07/17 19:57 Dose: 0.25 mg Sodium Chloride (Sodium Chloride 0.9%) 1,000 mls @ 999 mls/hr IV .Q1H1M STA Stop: 04/07/17 19:30 Last Admin: 04/07/17 18:55 Dose: 999 mls/hr Ondansetron HCl (Zofran Inj) 4 mg IVP ONCE ONE Stop: 04/07/17 18:31 Last Admin: 04/07/17 18:55 Dose: 4 mg - Scribe Statement The provider has reviewed the documentation as recorded by the Ashlee Dawn Provider Scribe Attestation: All medical record entries made by the Scribe were at my direction and personally dictated by me. I have reviewed the chart and agree that the record accurately reflects my personal performance of the history, physical exam, medical decision making, and the department course for this patient. I have also personally directed, reviewed, and agree with the discharge instructions and disposition. Disposition/Present on Arrival - Present on Arrival Any Indicators Present on Arrival: No History of DVT/PE: No History of Uncontrolled Diabetes: No Urinary Catheter: No History of Decub. Ulcer: No History Surgical Site Infection Following: None - Disposition Have Diagnosis and Disposition been Completed?: Yes Diagnosis: Medication side effect Disposition: HOME/ ROUTINE Disposition Time: 20:49 Condition: IMPROVED Additional Instructions: Please follow up with your doctor. Return to the ER for any worsening symptoms or for any other concerns. Prescriptions: Ondansetron ODT [Zofran ODT] 4 mg PO Q4H PRN #10 odt PRN Reason: Nausea/Vomiting Referrals: Rashid Avery MD [Family Provider] - Follow up with primary Forms: [employer] ([place])
[2017-04-07 19:03] LABS: BASO # 0.02 K/mm3 (0.0-2.0); BASO % 0.2 % (0.0-3.0); EOS # 0.1 (0.0-0.7); EOS % 1.3 % (1.5-5.0); GRAN # 8.35 (1.4-6.5); GRAN % 86.4 % (50.0-68.0); HEMOGLOBIN 11.7 g/dL (12.0-16.0); LYMPH # 0.6 (1.2-3.4); LYMPH % 6.1 % (22.0-35.0); MEAN CELL VOLUME 91.4 fl (80.0-105.0); MEAN CORPUSCULAR HEMOGLOBIN 31.5 pg (25.0-35.0); MEAN CORPUSCULAR HGB CONC 34.5 g/dl (31.0-37.0); MONO # 0.6 (0.1-0.6); PLATELET COUNT 192 10^3/uL (120.0-450.0); RBC 3.71 10^6/uL (3.5-6.1); RED CELL DISTRIBUTION WIDTH 13.5 % (11.5-14.5); WHITE BLOOD COUNT 9.7 10^3/ul (4.5-11.0)
[2017-04-07 19:20] LABS: ALB/GLOB RATIO 1.4 (1.1-1.8); ALBUMIN 4.6 g/dL (3.0-4.8); ALT/SGPT 37 U/L (7-56); AST/SGOT 55 U/L (15-39); BLOOD UREA NITROGEN 12 mg/dL (7-21); CALCIUM 9.2 mg/dL (8.4-10.5); GFR AFRICAN-AMERICAN > 60; GFR NON-AFRICAN AMERICAN > 60
[2017-04-07 19:33] LABS: TROPONIN I < 0.01 ng/mL
[2017-04-07 19:37] VITALS: RESP 16
[2017-04-07 19:47] LABS: BAND 4 % (0-2); EOSINOPHIL 2 % (0.0-3.0); LYMPHOCYTE 4 % (22.0-35.0); MONOCYTE 1 % (1.0-6.0); NEUTROPHIL 89 % (50.0-70.0); PLATELET ESTIMATE NORMAL (NORMAL)
[2017-04-07 19:48] LABS: OVALOCYTES SLIGHT
[2017-04-07 21:02] VITALS: BP 129/51; PULSE 67; O2SAT 97
--- NOTE | 2017-04-08 13:29 | CARD ---
APPROVED REPORT EKG Measurement Heart [id number] <Conclusion> Normal sinus rhythm Voltage criteria for left ventricular hypertrophy possible Inferior infarct, age undetermined Abnormal ECG
== END 2017-04-07 21:03 | disposition home or self-care (01) ==
LOC: ED 18:02
DX: R11.0 Nausea (principal); R42 Dizziness and giddiness; T40.4X5A Adverse effect of other synthetic narcotics, initial encounter; Y92.009 Unspecified place in unspecified non-institutional (private) residence as the place of occurrence of the external cause; I10 Essential (primary) hypertension
CPT/HCPCS: 80053; 84484; 85025; 93005; 96374; 99284; J2405; J7040

== ENCOUNTER 2018-03-17 20:10 | Emergency (ER) | payer MEDICARE ==
[2018-03-17 20:35] VITALS: BMI 23.3
[2018-03-17 20:42] VITALS: RESP 18; TEMP 98.6
--- NOTE | 2018-03-17 20:55 | ED PDOC ---
Arrival/HPI - General Chief Complaint: Abdominal Pain Time Seen by Provider: 03/17/18 20:12 Historian: Patient, Family - History of Present Illness Narrative History of Present Illness (Text): 03/17/18 20:55 Verenice Borden is an 83 year old female, whose past medical history includes quadruple bypass graft, CAD with 5 coronary stents, hypertension, hyperlipidemia , SVT, and gastritis, who presents to the emergency department accompanied by relative complaining of diarrhea. Patient states she has been experiencing multiple episodes of diarrhea for the past 2 days with occassional abdominal cramps. Patient admits to chronic Miralax use to help with defecation because of her hx. of hemorrhoids. Patient denies any fevers, chills, chest pain, shortness of breath, nausea, vomiting, diarrhea, back pain, neck pain, headache , dizziness, or any other complaint. PMD: Dr. Dexter Avery Cardiologidt: Dr. Coppola Time/Duration: < week (2 days) Symptom Onset: Gradual Symptom Course: Unchanged Activities at Onset: Light Context: Home Past Medical History - Provider Review Nursing Documentation Reviewed: Yes - Infectious Disease Hx of Infectious Diseases: None - Tetanus Immunization Tetanus Immunization: Unknown - Reproductive Menopause: Yes - Cardiac Hx Cardiac Disorders: Yes Hx Hypertension: Yes - Pulmonary Hx Respiratory Disorders: Yes Hx Pneumonia: Yes - Neurological Hx Neurological Disorder: Yes (SYNCOPE) Hx Dizziness: Yes - HEENT Hx HEENT Disorder: No - Renal Hx Renal Disorder: No - Endocrine/Metabolic Hx Endocrine Disorders: No - Hematological/Oncological Hx Blood Disorders: No - Integumentary Hx Dermatological Disorder: No - Musculoskeletal/Rheumatological Hx Musculoskeletal Disorders: No - Gastrointestinal Hx Gastrointestinal Disorders: Yes (HEMORRHOIDS) Other/Comment: gatroenteritis - Genitourinary/Gynecological Hx Genitourinary Disorders: No - Psychiatric Hx Psychophysiologic Disorder: No Hx Substance Use: No - Surgical History Other/Comment: CABG 1998, CARDIAC STNETS X 4, - Anesthesia Hx Anesthesia: Yes Hx Anesthesia Reactions: Yes Hx Malignant Hyperthermia: No - Suicidal Assessment Feels Threatened In Home Enviroment: No Family/Social History - Physician Review Nursing Documentation Reviewed: Yes Family/Social History: Unknown Family HX Smoking Status: Never Smoked Hx Alcohol Use: No Hx Substance Use: No Hx Substance Use Treatment: No Allergies/Home Meds Allergies/Adverse Reactions: Allergies codeine Allergy (Verified 03/17/18 20:35) NAUSEA radiological cotrast Allergy (Uncoded 03/17/18 20:35) URTICARIA Home Medications: Home Meds Medication Instructions Recorded Confirmed Aspirin [Aspirin] 81 mg PO DAILY 06/10/13 03/17/18 ALPRAZolam [Xanax] 0.25 mg PO TID PRN 11/04/16 03/17/18 Atorvastatin [Lipitor] 40 mg PO DAILY 11/04/16 03/17/18 Carvedilol [Coreg] 12.5 mg PO BID 11/04/16 03/17/18 Clopidogrel [Plavix] 75 mg PO DAILY 11/04/16 03/17/18 Ezetimibe [Zetia] 10 mg PO DAILY 11/04/16 03/17/18 Ramipril [Altace] 5 mg PO DAILY 11/04/16 03/17/18 Cholecalciferol (Vitamin D3) 2,000 unit PO DAILY 01/23/17 03/17/18 [Vitamin D3] Multivit-Min/FA/Lycopen/Lutein 1 tab PO DAILY 01/23/17 03/17/18 [Centrum Silver Tablet] amLODIPine [Norvasc] 1 tab PO DAILY 04/07/17 03/17/18 Levocetirizine Dihydrochloride 5 mg PO DAILY 03/17/18 03/17/18 [Xyzal] Pantoprazole [Protonix EC Tab] 40 mg PO DAILY 03/17/18 03/17/18 Review of Systems - Physician Review All systems were reviewed & negative as marked: Yes - Review of Systems Constitutional: Fatigue Eyes: Normal ENT: Normal Respiratory: Normal. absent: SOB, Cough Cardiovascular: Normal. absent: Chest Pain Gastrointestinal: Abdominal Pain, Diarrhea. absent: Nausea, Vomiting Musculoskeletal: Normal. absent: Back Pain, Neck Pain Skin: Normal. absent: Rash Neurological: Normal. absent: Headache, Dizziness Endocrine: Normal Hemo/Lymphatic: Normal Psychiatric: Normal Physical Exam Vital Signs Reviewed: Yes Vital Signs Temp Pulse Resp BP Pulse Ox 03/17/18 20:40 98.6 F 99 H 18 106/65 96 Temperature: Afebrile Blood Pressure: Normal Pulse: Regular Respiratory Rate: Normal Appearance: Positive for: Well-Appearing, Non-Toxic, Comfortable Pain Distress: None Mental Status: Positive for: Alert and Oriented X 3 - Systems Exam Head: Present: Atraumatic, Normocephalic Pupils: Present: PERRL Extroacular Muscles: Present: EOMI Conjunctiva: Present: Normal Ears: Present: NORMAL TM Mouth: Present: Moist Mucous Membranes Pharnyx: Present: Normal Neck: Present: Normal Range of Motion Respiratory/Chest: Present: Clear to Auscultation, Good Air Exchange. No: Respiratory Distress, Accessory Muscle Use Cardiovascular: Present: Regular Rate and Rhythm, Normal S1, S2. No: Murmurs Abdomen: No: Tenderness, Distention, Peritoneal Signs Back: Present: Normal Inspection Upper Extremity: Present: Normal Inspection. No: Cyanosis, Edema Lower Extremity: Present: Normal Inspection. No: Edema Neurological: Present: GCS=15, CN II-XII Intact, Speech Normal Skin: Present: Warm, Dry, Normal Color. No: Rashes Psychiatric: Present: Alert, Oriented x 3, Normal Insight, Normal Concentration Medical Decision Making ED Course and Treatment: 03/17/18 20:55 Impression: 83 year old female complaining of diarrhea, abdominal discomfort, and fatigue x 2 days. Plan: -- EKG -- Labs, lipase -- IV fluids -- Toradol -- Reassess and disposition Prior Visits: Notes and results from previous visits were reviewed. On 04/07/2017, pt was seen in the emergency department for vomiting, nausea, and dizziness. Pt was d/c home. Progress Notes: 03/17/18 22:31 Reviewed EKG, NSR at 77 bpm. Inferior infarct. No acute changes. 03/17/18 23:15 On re-evaluation, patient feels better and is in no acute distress. I have discussed the results and plan with the patient, who expresses understanding. Patient in agreement with plan to be discharged home. Patient is stable for discharge. Patient was instructed to follow up with physician or return if symptoms worsen or new concerning symptoms arise. - Lab Interpretations Lab Results: 03/17/18 21:10 03/17/18 21:10 Lab Results 03/17/18 21:10: WBC 9.0, RBC 3.79, Hgb 11.7 L, Hct 35.2 L, MCV 92.9, MCH 30.9, MCHC 33.2, RDW 14.0, Plt Count 191, MPV 9.6 03/17/18 21:10: Sodium 142, Potassium 3.7, Chloride 102, Carbon Dioxide 27, Anion Gap 18, BUN 13, Creatinine 0.6 L, Est GFR ( Amer) > 60, Est GFR ( Non-Af Amer) > 60, Random Glucose 94, Calcium 9.1, Total Bilirubin 0.7, AST 30, ALT 26, Alkaline Phosphatase 71, Total Protein 7.9, Albumin 4.4, Globulin 3.5, Albumin/Globulin Ratio 1.2, Lipase 71 I have reviewed the lab results: Yes - EKG Interpretation Interpreted by ED Physician: Yes Type: 12 lead EKG - Medication Orders Current Medication Orders: Sodium Chloride (Sodium Chloride 0.9%) 500 mls @ 500 mls/hr IV .Q1H STA Stop: 03/18/18 00:10 Discontinued Medications Sodium Chloride (Sodium Chloride 0.9%) 500 mls @ 500 mls/hr IV .Q1H STA Stop: 03/17/18 21:56 Last Admin: 03/17/18 21:12 Dose: 500 mls/hr eMAR Start Stop Document 03/17/18 21:12 JOL (Rec: 03/17/18 21:12 [id number] Intravenous Solution Start Date 03/17/18 Start Time 21:12 End Date 03/17/18 End time 21:42 Total Infusion Time 30 Ketorolac Tromethamine (Toradol) 15 mg IVP ONCE ONE Stop: 03/17/18 21:00 Last Admin: 03/17/18 21:12 Dose: 15 mg MAR Pain Assessment Document 03/17/18 21:12 JOL (Rec: 03/17/18 21:12 [id number] Pain Reassessment Is this a pain reassessment? No Sleep Is patient sleeping during reassessment? No Presence of Pain Presence of Pain Yes Pain Scale Used Pain Scale Used Numeric Location Pain Location Body Site Abdomen Description Intensity of Pain at present 5 IVP Administration Document 03/17/18 21:12 JOL (Rec: 03/17/18 21:12 [id number] Charges for Administration # of IVP Administrations 1 - Scribe Statement The provider has reviewed the documentation as recorded by the Ashlee Foley Provider Scribe Attestation: All medical record entries made by the Scribe were at my direction and personally dictated by me. I have reviewed the chart and agree that the record accurately reflects my personal performance of the history, physical exam, medical decision making, and the department course for this patient. I have also personally directed, reviewed, and agree with the discharge instructions and disposition. Disposition/Present on Arrival - Present on Arrival Any Indicators Present on Arrival: No History of DVT/PE: No History of Uncontrolled Diabetes: No Urinary Catheter: No History of Decub. Ulcer: No History Surgical Site Infection Following: None - Disposition Have Diagnosis and Disposition been Completed?: Yes Diagnosis: Diarrhea Disposition: HOME/ ROUTINE Disposition Time: 23:15 Patient Plan: Discharge Patient Problems: Current Active Problems Problem Status Onset Diarrhea Acute Condition: STABLE Discharge Instructions (ExitCare): Diarrhea and Traveler's Diarrhea, Adult (DC) Additional Instructions: Avoid excessive Miralax use for now/drink plenty of liquids/may drink Gatorade/ follow up with your doctor this week Referrals: Rashid Avery MD [Primary Care Provider] - Follow up with primary Forms: [employer] (Japanese)
[2018-03-17] MEDS ORDERED: Sodium Chloride 0.9% 500 ML IV STA ×2 (20:57→23:11)
[2018-03-17 21:33] LABS: HEMOGLOBIN 11.7 g/dL (12.0-16.0); MEAN CELL VOLUME 92.9 fl (80.0-105.0); MEAN CORPUSCULAR HEMOGLOBIN 30.9 pg (25.0-35.0); MEAN CORPUSCULAR HGB CONC 33.2 g/dl (31.0-37.0); MEAN PLATELET VOLUME 9.6 fl (7.0-11.0); RBC 3.79 10^6/uL (3.5-6.1)
[2018-03-17 21:35] LABS: ALB/GLOB RATIO 1.2 (1.1-1.8); ALBUMIN 4.4 g/dL (3.0-4.8); ALT/SGPT 26 U/L (7-56); AST/SGOT 30 U/L (14-36); BLOOD UREA NITROGEN 13 mg/dL (7-21); CALCIUM 9.1 mg/dL (8.4-10.5); GFR AFRICAN-AMERICAN > 60; GFR NON-AFRICAN AMERICAN > 60; LIPASE 71 U/L (23-300)
[2018-03-18 02:43] VITALS: BP 110/68; PULSE 85; O2SAT 98
--- NOTE | 2018-03-18 12:54 | CARD ---
APPROVED REPORT Date of service: 03/17/2018 EKG Measurement Heart [id number] <Conclusion> Normal sinus rhythm Inferior infarct, age undetermined Abnormal ECG
== END 2018-03-17 23:20 | disposition home or self-care (01) ==
LOC: ED 20:10
DX: R19.7 Diarrhea, unspecified (principal); I25.10 Atherosclerotic heart disease of native coronary artery without angina pectoris; I10 Essential (primary) hypertension; Z95.1 Presence of aortocoronary bypass graft; Z95.5 Presence of coronary angioplasty implant and graft
CPT/HCPCS: 80053; 83690; 85027; 93005; 96374; 99284; J1885; J7040

== ENCOUNTER 2018-04-04 12:33 | Observation (INO) | payer MEDICARE ==
--- NOTE | 2018-04-04 12:55 | ED PDOC ---
Arrival/HPI - General Chief Complaint: Palpitations Time Seen by Provider: 04/04/18 12:51 Historian: Patient - History of Present Illness Narrative History of Present Illness (Text): 04/04/18 12:54 83 year old female, whose PMH includes hypertension, CABG, and 5 cardiac stents (on Plavix), who presents to the emergency department complaining of palpitations since prior to arrival. Patient reports her symptom began while driving home 1 hour ago and described is at tightness, associated with feeling weakness. She notes having an echo-cardiogram 2 months ago, which came out with severe findings of possible valve leaking. Patient states she had 4 bowel movements today, mainly due to her hemorrhoids and miralax that she is using. She denies any hx of blood clots, recent surgeries, leg swelling, recent trauma , or hormone treatment. Patient denies shortness of breath, fever, dizziness, headache, abdominal pain, nausea, vomiting, dysuria, or other complaints. Home Health Care Social Worker: Dr. Greenwood PMD: Dr. Nobles 04/04/18 16:01 Time/Duration: Prior to Arrival, 1 hour Symptom Onset: Sudden Symptom Course: Unchanged Quality: Tightness Context: Radio Dispatcher Past Medical History - Provider Review Nursing Documentation Reviewed: Yes - Infectious Disease Hx of Infectious Diseases: None - Tetanus Immunization Tetanus Immunization: Unknown - Reproductive Menopause: Yes - Cardiac Hx Cardiac Disorders: Yes Hx Hypertension: Yes - Pulmonary Hx Respiratory Disorders: No - Neurological Hx Neurological Disorder: Yes (SYNCOPE) Hx Dizziness: Yes - HEENT Hx HEENT Disorder: No - Renal Hx Renal Disorder: No - Endocrine/Metabolic Hx Endocrine Disorders: No - Hematological/Oncological Hx Blood Disorders: No - Integumentary Hx Dermatological Disorder: No - Musculoskeletal/Rheumatological Hx Musculoskeletal Disorders: Yes - Gastrointestinal Hx Gastrointestinal Disorders: Yes (HEMORRHOIDS) Other/Comment: gatroenteritis - Genitourinary/Gynecological Hx Genitourinary Disorders: No - Psychiatric Hx Psychophysiologic Disorder: No Hx Substance Use: No - Surgical History Other/Comment: CABG 1998, CARDIAC STNETS X 4, - Anesthesia Hx Anesthesia: Yes Hx Anesthesia Reactions: Yes Hx Malignant Hyperthermia: No - Suicidal Assessment Feels Threatened In Home Enviroment: No Family/Social History - Physician Review Nursing Documentation Reviewed: Yes Family/Social History: Unknown Family HX Smoking Status: Never Smoked Hx Alcohol Use: No Hx Substance Use: No Hx Substance Use Treatment: No Allergies/Home Meds Allergies/Adverse Reactions: Allergies codeine Allergy (Verified 03/17/18 20:35) NAUSEA radiological cotrast Allergy (Uncoded 03/17/18 20:35) URTICARIA Home Medications: Home Meds Medication Instructions Recorded Confirmed Aspirin [Aspirin] 81 mg PO DAILY 06/10/13 04/04/18 ALPRAZolam [Xanax] 0.25 mg PO TID PRN 11/04/16 04/04/18 Atorvastatin [Lipitor] 40 mg PO DAILY 11/04/16 04/04/18 Carvedilol [Coreg] 6.25 mg PO BID 11/04/16 04/04/18 Clopidogrel [Plavix] 75 mg PO DAILY 11/04/16 04/04/18 Ezetimibe [Zetia] 10 mg PO DAILY 11/04/16 04/04/18 Ramipril [Altace] 5 mg PO DAILY 11/04/16 04/04/18 Cholecalciferol (Vitamin D3) 2,000 unit PO DAILY 01/23/17 04/04/18 [Vitamin D3] Multivit-Min/FA/Lycopen/Lutein 1 tab PO DAILY 01/23/17 04/04/18 [Centrum Silver Tablet] amLODIPine [Norvasc] 1 tab PO DAILY 04/07/17 04/04/18 Review of Systems - Review of Systems Constitutional: Fatigue. absent: Fevers ENT: absent: Sinus Congestion Respiratory: absent: SOB Cardiovascular: Palpitations. absent: Chest Pain Gastrointestinal: absent: Abdominal Pain Genitourinary Female: absent: Dysuria Musculoskeletal: absent: Back Pain Skin: absent: Rash Neurological: absent: Headache, Dizziness Endocrine: absent: Diaphoresis Physical Exam Vital Signs Reviewed: Yes Vital Signs Temp Pulse Pulse Resp BP Pulse Ox 04/04/18 15:28 103/50 L 04/04/18 15:24 64 17 97 04/04/18 15:00 68 18 119/77 98 04/04/18 14:15 72 18 111/55 L 97 04/04/18 12:53 129 H 04/04/18 12:47 98.4 F 127 H 19 101/66 97 04/04/18 12:44 98.4 F 127 H 19 101/66 97 Temperature: Afebrile Blood Pressure: Normal Pulse: Tachycardic Respiratory Rate: Normal Appearance: Positive for: Well-Appearing, Non-Toxic, Comfortable Pain Distress: None Mental Status: Positive for: Alert and Oriented X 3 - Systems Exam Head: Present: Atraumatic, Normocephalic Pupils: Present: PERRL Extroacular Muscles: Present: EOMI Conjunctiva: Present: Normal Respiratory/Chest: Present: Clear to Auscultation, Good Air Exchange. No: Respiratory Distress, Accessory Muscle Use, Wheezes, Rales, Rhonchi Cardiovascular: Present: Murmurs (systolic ), Tachycardic. No: Regular Rate and Rhythm Abdomen: Present: Normal Bowel Sounds. No: Tenderness, Distention, Peritoneal Signs, Rebound, Guarding Neurological: Present: GCS=15, CN II-XII Intact, Speech Normal Skin: Present: Warm, Dry, Normal Color. 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 Tachy into the 130s w/ stable pressure. In NAD w/ good mentation. No hx of DVT or blood clots. Likely eletrolyte abnl associated diarrhea causing tachy rythmn. Pt took her coreg today. No recent changes in her cardiac medicaitons. Plan: -- EKG -- Chest X-ray -- Labs -- Reassess and disposition Progress Notes: 04/04/18 13:14 EKG: Ordered, reviewed, and independently interpreted the EKG. Rate : 129 BPM Rhythm : sinus tachycardia Interpretation : left ventricular hypertrophy 04/04/18 13:50 Chest X-ray: Creator : Roberto Stevenson MD FINDINGS: LUNGS: No active pulmonary disease. PLEURA: No significant pleural effusion identified, no pneumothorax apparent. CARDIOVASCULAR: No radiographic findings to suggest acute or significant cardiovascular disease. Incidental Finding(s): Postoperative changes related to sternotomy. OSSEOUS STRUCTURES: No significant abnormalities. VISUALIZED UPPER ABDOMEN: Normal. OTHER FINDINGS: None. IMPRESSION: No active disease. No significant interval change compared to the prior examination(s). 1430 Mild hyperkalemia w/ out major EKG Changes: given IVF, bicarb and insulin. w/ conversion to NSR. Appreciate consult w/ Dr. Coppola: to see in AM after obs Appreciate consult w/ Pts Primary: Dr. Felder: to obs under his service. Troponin, BNP unremarkable. 04/04/18 14:44 Repeat EKG EKG: Ordered, reviewed, and independently interpreted the EKG. Rate : 76 BPM Rhythm : NSR Interpretation : No ST-segment elevations or depressions, no T-wave inversions, normal intervals. No STEMI 04/04/18 16:03 - Lab Interpretations Lab Results: 04/04/18 13:00 04/04/18 13:00 Lab Results 04/04/18 13:00: TSH 3rd Generation 2.19 04/04/18 13:00: Sodium 137, Potassium 5.4 H, Chloride 97 L, Carbon Dioxide 28, Anion Gap 17, BUN 17, Creatinine 0.9, Est GFR ( Amer) > 60, Est GFR (Non- Af Amer) 60, Random Glucose 107, Calcium 9.5, Phosphorus 5.7 H, Magnesium 2.2, Total Bilirubin 0.7, AST 37 H D, ALT 35, Alkaline Phosphatase 86, Troponin I < 0.01, NT-Pro-B Natriuret Pep 349, Total Protein 7.8, Albumin 4.4, Globulin 3.4, Albumin/Globulin Ratio 1.3 04/04/18 13:00: PT 11.6, INR 1.02, APTT 28.9 04/04/18 13:00: WBC 9.6, RBC 3.79, Hgb 11.6 L, Hct 34.5 L, MCV 91.0, MCH 30.6, MCHC 33.6, RDW 14.0, Plt Count 286, MPV 9.3, Gran % 76.1 H, Lymph % (Auto) 12.7 L, [place] % (Auto) 8.2 H, Eos % (Auto) 2.6, Baso % (Auto) 0.4, Gran # 7.28 H, Lymph # (Auto) 1.2, [place] # (Auto) 0.8 H, Eos # (Auto) 0.3, Baso # (Auto) 0.04 I have reviewed the lab results: Yes - RAD Interpretation Radiology Orders: 04/04/18 12:59 CHEST PORTABLE [RAD] Stat Home Care Assistant: Radiologist - EKG Interpretation Interpreted by ED Physician: Yes Type: 12 lead EKG - Medication Orders Current Medication Orders: Sodium Chloride (Sodium Chloride 0.9%) 500 mls @ 100 mls/hr IV .Q5H STA Stop: 04/04/18 18:41 Last Admin: 04/04/18 14:14 Dose: 100 mls/hr eMAR Start Stop Document 04/04/18 14:14 SRE (Rec: 04/04/18 14:15 SRE [id number]) Intravenous Solution Start Date 04/04/18 Start Time 14:00 End Date 04/04/18 End time 17:00 Total Infusion Time 180 Discontinued Medications Dextrose (Dextrose 50% Inj) 50 ml IV ONCE ONE Stop: 04/04/18 13:58 Last Admin: 04/04/18 14:19 Dose: 50 ml eMAR Start Stop Document 04/04/18 14:19 SRE (Rec: 04/04/18 14:19 SRE [id number]) Intravenous Solution Start Date 04/04/18 Start Time 14:19 End Date 04/04/18 End time 14:20 Total Infusion Time 1 Calcium Gluconate 1,000 mg/ (Sodium Chloride) 110 mls @ 110 mls/hr IVPB ONCE ONE Stop: 04/04/18 14:59 Last Admin: 04/04/18 14:17 Dose: 110 mls/hr eMAR Start Stop Document 04/04/18 14:17 SRE (Rec: 04/04/18 14:17 SRE [id number]) Intravenous Solution Start Date 04/04/18 Start Time 14:17 End Date 04/04/18 End time 14:36 Total Infusion Time 19 Insulin Human Regular (Humulin R) 10 units IV ONCE ONE Stop: 04/04/18 13:54 Last Admin: 04/04/18 14:15 Dose: 10 unit eMAR Start Stop Document 04/04/18 14:15 SRE (Rec: 04/04/18 14:15 SRE [id number]) Intravenous Solution Start Date 04/04/18 Start Time 14:15 End Date 04/04/18 End time 14:16 Total Infusion Time 1 MAR Blood Glucose Document 04/04/18 14:15 SRE (Rec: 04/04/18 14:15 SRE [id number]) Blood Glucose Finger Stick Blood Glucose (70-120) 107 Sodium Bicarbonate (Sodium Bicarbonate 8.4% (50 Meq) Syringe) 50 meq IVP ONCE ONE Stop: 04/04/18 13:54 Last Admin: 04/04/18 14:16 Dose: 50 meq IVP Administration Document 04/04/18 14:16 SRE (Rec: 04/04/18 14:16 SRE [id number]) Charges for Administration # of IVP Administrations 1 - Scribe Statement The provider has reviewed the documentation as recorded by the Scribe Jackelyn Rankin Provider Scribe Attestation: All medical record entries made by the Scribe were at my direction and personally dictated by me. I have reviewed the chart and agree that the record accurately reflects my personal performance of the history, physical exam, medical decision making, and the department course for this patient. I have also personally directed, reviewed, and agree with the discharge instructions and disposition. Disposition/Present on Arrival - Present on Arrival Any Indicators Present on Arrival: No History of DVT/PE: No History of Uncontrolled Diabetes: No Urinary Catheter: No History of Decub. Ulcer: No History Surgical Site Infection Following: None - Disposition Have Diagnosis and Disposition been Completed?: Yes Diagnosis: Hyperkalemia, Diarrhea, Tachycardia Disposition: HOSPITALIZED Disposition Time: 14:44 Patient Plan: Observation Condition: GOOD Forms: [facility] ([place])
[2018-04-04 13:22] LABS: BASO # 0.04 K/mm3 (0.0-2.0); BASO % 0.4 % (0.0-3.0); EOS # 0.3 (0.0-0.7); EOS % 2.6 % (1.5-5.0); GRAN # 7.28 (1.4-6.5); GRAN % 76.1 % (50.0-68.0); HEMOGLOBIN 11.6 g/dL (12.0-16.0); LYMPH # 1.2 (1.2-3.4); LYMPH % 12.7 % (22.0-35.0); MEAN CORPUSCULAR HEMOGLOBIN 30.6 pg (25.0-35.0); MEAN CORPUSCULAR HGB CONC 33.6 g/dl (31.0-37.0); MEAN PLATELET VOLUME 9.3 fl (7.0-11.0); MONO # 0.8 (0.1-0.6); MONO % 8.2 % (1.0-6.0); RBC 3.79 10^6/uL (3.5-6.1); WHITE BLOOD COUNT 9.6 10^3/ul (4.5-11.0)
[2018-04-04 13:31] LABS: INR 1.02; PARTIAL THROMBOPLASTIN TIME 28.9 Seconds (25.1-36.5); PROTHROMBIN TIME 11.6 SECONDS (9.4-12.5)
[2018-04-04 13:40] LABS: ALB/GLOB RATIO 1.3 (1.1-1.8); ALBUMIN 4.4 g/dL (3.0-4.8); ALT/SGPT 35 U/L (7-56); AST/SGOT 37 U/L (14-36); BLOOD UREA NITROGEN 17 mg/dL (7-21); CALCIUM 9.5 mg/dL (8.4-10.5); GFR AFRICAN-AMERICAN > 60; GFR NON-AFRICAN AMERICAN 60
[2018-04-04] MEDS ORDERED: Sodium Chloride 0.9% 500 ML IV STA (13:42)
[2018-04-04 13:44] LABS: B-TYPE NATRIURETIC PEPTIDE 349 pg/mL (0-450); TROPONIN I < 0.01 ng/mL
--- NOTE | 2018-04-04 13:46 | RAD ---
Date of service: 04/04/2018 HISTORY: palpitatioins COMPARISON: And . FINDINGS: LUNGS: No active pulmonary disease. PLEURA: No significant pleural effusion identified, no pneumothorax apparent. CARDIOVASCULAR: No radiographic findings to suggest acute or significant cardiovascular disease. Incidental Finding(s): Postoperative changes related to sternotomy. OSSEOUS STRUCTURES: No significant abnormalities. VISUALIZED UPPER ABDOMEN: Normal. OTHER FINDINGS: None. IMPRESSION: No active disease. No significant interval change compared to the prior examination(s).
[2018-04-04] MEDS ORDERED: Insulin Regular 1 UNITS/0.01 ML ML IV ONE (13:53)
[2018-04-04] MEDS ORDERED: Sodium Bicarbonate (8.4%) 50 Meq Syringe IVP ONE (13:53)
[2018-04-04] MEDS ORDERED: Dextrose 50% SYRINGE Inj (50 ml) IV ONE (13:57)
--- NOTE | 2018-04-04 17:48 | CARD ---
APPROVED REPORT Date of service: 04/04/2018 EKG Measurement Heart [id number] <Conclusion> Accelerated Junctional rhythm Left ventricular hypertrophy with repolarization abnormality Inferior infarct, age Probably Old. Abnormal ECG
[2018-04-04 18:37] VITALS: BMI 23.0
--- NOTE | 2018-04-04 18:48 | CARD ---
APPROVED REPORT Date of service: 04/04/2018 EKG Measurement Heart [id number] <Conclusion> Normal sinus rhythm Moderate voltage criteria for LVH, may be normal variant Borderline ECG
[2018-04-05 06:11] VITALS: RESP 18; O2SAT 96
[2018-04-05 07:38] LABS: ALB/GLOB RATIO 1.2 (1.1-1.8); ALBUMIN 4.1 g/dL (3.0-4.8); ALT/SGPT 29 U/L (7-56); AST/SGOT 26 U/L (14-36); BLOOD UREA NITROGEN 13 mg/dL (7-21); CALCIUM 9.3 mg/dL (8.4-10.5); GFR AFRICAN-AMERICAN > 60; GFR NON-AFRICAN AMERICAN > 60
[2018-04-05 07:47] LABS: TROPONIN I < 0.01 ng/mL
--- NOTE | 2018-04-05 08:42 | CON ---
Copied To: Charlie Coppola MD Attending MD: Charlie Coppola MD DATE: 04/05/2018 INDICATIONS: SVT, palpitations. HISTORY OF PRESENT ILLNESS: This is an 83-year-old woman known to me who came to Emergency Room yesterday with a short history of approximately one hour of palpitations and tightness in the chest. She was found to have SVT with a heart rate of about 130 beats per minute. This occurred in the setting of multiple bowel movements and possible dehydration. She was given IV fluids and the rhythm reverted to sinus rhythm. The symptoms resolved. There is no shortness of breath, orthopnea, PND, syncope, presyncope, lightheadedness, dizziness, vertigo, edema, claudication, fever, chills, cough, sputum production, hemoptysis, abdominal pain, nausea, vomiting or melena. Subsequently, she was admitted to Telemetry. This morning, she feels well, resting in bed without chest pain. There has been no recurrence of SVT or other arrhythmia. Past medical history is complex. She has severe aortic stenosis by echocardiogram. She has known coronary artery disease with remote coronary bypass surgery, remote myocardial infarction and coronary interventions in the past. She had multiple stents. There is history of hypertension. She has cerebrovascular disease, hemorrhoids, history of a right total hip replacement and a hysterectomy. MEDICATIONS AT THE TIME OF ADMISSION: Include ramipril, aspirin, multivitamins, Coreg, Lipitor, Norvasc, Plavix, vitamin D, Xanax p.r.n., Zetia. ALLERGIES: SHE DENIES ANY ALLERGY TO IV CONTRAST AND CODEINE. SOCIAL HISTORY: She lives at home with her . She does not smoke cigarette. She does not drink alcohol. She is ambulatory. REVIEW OF SYSTEMS: Ten-point review of systems is, otherwise, unremarkable except as noted above. FAMILY HISTORY: Noncontributory. PHYSICAL EXAMINATION: GENERAL: She is a well-developed woman lying in bed on Telemetry in no acute distress. VITAL SIGNS: Notable for sinus rhythm to sinus bradycardia around 57 beats per minute at the moment, afebrile, 140/67, 97% on room air. Respirations 18-20. HEENT: Exam reveals no neck vein distention or thyromegaly. Carotid upstrokes were diminished. Mucous membranes moist. Conjunctiva pink. NECK: Supple. LUNGS: Lung mon clear throughout. HEART: Examination revealed normal first and diminished second heart sounds. There is a systolic ejection murmur heard in the aortic space and along the left sternal border. ABDOMEN: Soft. Bowel sounds present. No mass, organomegaly, tenderness, rebound or guarding. No CVA tenderness. No palpable abdominal aortic aneurysm. EXTREMITIES: Revealed no cyanosis, clubbing or edema. NEUROLOGICAL: Awake, alert and oriented. SKIN: Warm and dry. No rash or cellulitis. PSYCHIATRIC: Normal as to mood and affect. LABORATORY AND IMAGING: Initial cardiogram showed SVT, possibly accelerated junctional rhythm at 130 beats per minute. Followup EKG shows sinus rhythm with leftward axis, right ventricular conduction delay, mild nonspecific ST wave changes. Portable chest x-ray shows no active disease. CBC is notable for hemoglobin 11.6, hematocrit 34.5. White count is normal, platelet count is normal. PT/INR, PTT unremarkable. Electrolytes notable for potassium of 5.4, repeat 4.7 this morning. BUN and creatinine unremarkable. Blood sugar unremarkable. Magnesium 2.2. LFTs unremarkable. Two troponins are negative. BNP 349. TSH is normal. IMPRESSION: Verenice Borden is an 83-year-old woman with a history of supraventricular tachycardia, who presented with supraventricular tachycardia in the setting of multiple bowel movements and possible volume depletion. Potassium was mildly elevated. At this time, she is on Telemetry. I will continue her usual medications. She can be out of bed and ambulate. She will reduce the use of laxatives to p.r.n. instead of once or twice daily. She will keep herself well hydrated. If there are no recurrences of SVT and she ambulates well and there are no further symptoms, early discharge can be anticipated for later today with outpatient followup in the office. She is going to be followed closely for aortic stenosis, which has been severe on a recent echocardiogram and for chronic cerebrovascular disease, which has been monitored with carotid duplex studies. Charlie Coppola MD [facility]
[2018-04-05] MEDS ORDERED: Multivitamin With Minerals Tab PO SCH (10:00)
[2018-04-05] MEDS ORDERED: Cholecalciferol 1,000 INTLU TAB PO SCH (10:00)
[2018-04-05 12:08] VITALS: BP 151/69; PULSE 67; TEMP 98.4
== END 2018-04-05 13:33 | disposition home or self-care (01) ==
LOC: ED 12:33 → ERH 15:17 → 2RSO 17:55
PROVIDERS: ADMIT Internal Medicine; ATTEND Internal Medicine
DX: I47.1 Supraventricular tachycardia (principal); I67.9 Cerebrovascular disease, unspecified; E87.5 Hyperkalemia; I10 Essential (primary) hypertension; I25.10 Atherosclerotic heart disease of native coronary artery without angina pectoris; I25.2 Old myocardial infarction; I35.0 Nonrheumatic aortic (valve) stenosis; K64.9 Unspecified hemorrhoids; Z79.02 Long term (current) use of antithrombotics/antiplatelets; Z79.82 Long term (current) use of aspirin; Z90.710 Acquired absence of both cervix and uterus; Z96.641 Presence of right artificial hip joint; Z95.5 Presence of coronary angioplasty implant and graft; Z95.1 Presence of aortocoronary bypass graft
CPT/HCPCS: 36415; 71045; 80053; 83735; 83880; 84100; 84443; 84484; 85025; 85610; 85730; 93005; 96361; 96365; 96375; 99285; G0378; J0610; J7040

== ENCOUNTER 2018-12-07 09:25 | Observation (INO) | payer MEDICARE ==
[2018-12-07 09:26] VITALS: BMI 23.0
[2018-12-07] MEDS ORDERED: Famotidine 20mg/50ml 20 MG/50 ML BAG IVPB STA (09:45)
--- NOTE | 2018-12-07 10:04 | ED PDOC ---
Arrival/HPI - General Chief Complaint: Chest Pain Time Seen by Provider: 12/07/18 09:32 - History of Present Illness Narrative History of Present Illness (Text): 12/07/18 10:00 An 83 year old female, whose past medical history includes hypertension, CABG, and 5 cardiac stents (on Plavix), who presents to the ED for chest pain since today. Patient reports pain is in the epigastric lower substernum region and radiates to the sides. Patient reports associated nausea that resolved prior to arrival. Patient notes PO intake of 325 mg ASA prior to arrival, which improved symptoms. Patient also notes increased intake of fibers and that she has been taking miralax, resulting in loose stools. Patient denies any fevers, chills, headache, dizziness, chest pain, shortness of breath, dyspnea on exertion, cough, abdominal pain, vomiting, diarrhea, back pain, neck pain, urinary changes, or any other complaints. PMD: Dr. Avery Grants Officer: Dr. Coppola Time/Duration: 4-6 hours Symptom Onset: Gradual Activities at Onset: Light Context: Home Past Medical History - Provider Review Nursing Documentation Reviewed: Yes - Infectious Disease Hx of Infectious Diseases: None - Tetanus Immunization Tetanus Immunization: Unknown - Reproductive Menopause: Yes - Cardiac Hx Cardiac Disorders: Yes Hx Angina: Yes Hx Cardiac Arrhythmia: Yes Hx Circulatory Problems: Yes Hx Hypertension: Yes - Pulmonary Hx Pneumonia: Yes - Neurological Hx Dizziness: Yes - HEENT Hx Cataracts: Yes (with surgery) - Renal Hx Renal Disorder: No - Endocrine/Metabolic Hx Endocrine Disorders: No - Hematological/Oncological Hx Blood Disorders: No - Integumentary Hx Dermatological Disorder: No - Musculoskeletal/Rheumatological Hx Falls: Yes Hx Fractures: Yes (right hip, humerous, left ankle) - Gastrointestinal Other/Comment: Hemorrhoids. Takes Miralax Daily. - Genitourinary/Gynecological Other/Comment: hysterectomy - Psychiatric Hx Psychophysiologic Disorder: No Hx Substance Use: No - Surgical History Hx Cardiac Catheterization: Yes (5 stents) Hx Coronary Stent: Yes (5) Other/Comment: Cataracts. hysterectomy. CABG - Anesthesia Hx Anesthesia: Yes Hx Anesthesia Reactions: Yes Hx Malignant Hyperthermia: No - Suicidal Assessment Feels Threatened In Home Enviroment: No Family/Social History - Physician Review Nursing Documentation Reviewed: Yes Family/Social History: Unknown Family HX Smoking Status: Never Smoked Hx Alcohol Use: No Hx Substance Use: No Hx Substance Use Treatment: No Allergies/Home Meds Allergies/Adverse Reactions: Allergies codeine Allergy (Verified 03/17/18 20:35) NAUSEA radiological cotrast Allergy (Uncoded 03/17/18 20:35) URTICARIA Home Medications: Home Meds Medication Instructions Recorded Confirmed Aspirin 81 mg PO DAILY 06/10/13 12/07/18 ALPRAZolam [Xanax] 0.25 mg PO TID PRN 11/04/16 12/07/18 Atorvastatin [Lipitor] 40 mg PO DAILY 11/04/16 12/07/18 Carvedilol [Coreg] 12.5 mg PO BID 11/04/16 12/07/18 Clopidogrel [Plavix] 75 mg PO DAILY 11/04/16 12/07/18 Ezetimibe [Zetia] 10 mg PO DAILY 11/04/16 12/07/18 Ramipril [Altace] 5 mg PO DAILY 11/04/16 12/07/18 Cholecalciferol (Vitamin D3) 2,000 unit PO DAILY 01/23/17 12/07/18 [Vitamin D3] Multivit-Min/FA/Lycopen/Lutein 1 tab PO DAILY 01/23/17 12/07/18 [Centrum Silver Tablet] amLODIPine [Norvasc] 5 mg PO DAILY 04/07/17 12/07/18 Levocetirizine Dihydrochloride 5 mg PO DAILY 12/07/18 12/07/18 [24Hr Allergy Relief] Pantoprazole [Protonix EC Tab] 40 mg PO DAILY 12/07/18 12/07/18 Review of Systems - Physician Review All systems were reviewed & negative as marked: Yes - Review of Systems Constitutional: absent: Fatigue Eyes: absent: Vision Changes ENT: absent: Hearing Changes, Rhinorrhea Respiratory: absent: SOB, Cough Cardiovascular: Chest Pain Gastrointestinal: absent: Abdominal Pain, Vomiting Genitourinary Female: absent: Dysuria, Hematuria Musculoskeletal: absent: Back Pain, Neck Pain Skin: absent: Rash Neurological: absent: Headache, Dizziness Endocrine: absent: Diaphoresis Hemo/Lymphatic: absent: Adenopathy Psychiatric: absent: Anxiety, Depression Physical Exam Vital Signs Reviewed: Yes Vital Signs Temp Pulse Resp BP Pulse Ox 12/07/18 09:26 97.8 F 71 18 129/59 L 97 Temperature: Afebrile Blood Pressure: Hypertensive Pulse: Regular Respiratory Rate: Normal Appearance: Positive for: Well-Appearing, Non-Toxic, Comfortable Mental Status: Positive for: Alert and Oriented X 3 - Systems Exam Head: Present: Atraumatic, Normocephalic Pupils: Present: PERRL Extroacular Muscles: Present: EOMI Conjunctiva: Present: Normal Mouth: Present: Moist Mucous Membranes Neck: Present: Normal Range of Motion Respiratory/Chest: Present: Clear to Auscultation, Good Air Exchange. No: Respiratory Distress, Accessory Muscle Use Cardiovascular: Present: Regular Rate and Rhythm, Normal S1, S2. No: Murmurs Abdomen: No: Tenderness, Distention, Peritoneal Signs Rectal: Present: Other (Loose stools) Upper Extremity: Present: Normal Inspection. No: Cyanosis, Edema Lower Extremity: Present: Normal Inspection. No: Edema Neurological: Present: GCS=15, CN II-XII Intact, Speech Normal Skin: Present: Warm, Dry, Normal Color. No: Rashes Psychiatric: Present: Alert, Oriented x 3, Normal Insight, Normal Concentration Medical Decision Making ED Course and Treatment: 12/07/18 10:06 Impression: An 83 year old female who presents to the ED for chest pain. Differential Diagnosis included but are not limited to: ACS vs reflux Plan: -- EKG -- Labs -- Chest X-Ray -- Pepcid -- IV Fluids -- Reassess and disposition Prior Visits: Notes and results from previous visits were reviewed. Progress Notes: EKG: NSR @ 62 bpm. Q waves in leads 3 and AVF. 12/07/18 10:[address] Chest X-Ray IMPRESSION: No active disease. 12/07/18 11:35 Patient complaining of chest discomfort. EKG repeated, shows NSR @ 61 bpm. AV block with LVH. Normal intervals. No ST elevations. 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 Patient's case was discussed with her PMD Dr. Riley Avery who came to evaluate patient. She will be placed on observation for telemetry chest pain r/o acs. - RAD Interpretation Radiology Orders: 12/07/18 09:44 CHEST PORTABLE [RAD] Stat - Medication Orders Current Medication Orders: Famotidine (Pepcid 20mg/50ml Premix) 20 mg in 50 mls @ 100 mls/hr IVPB STAT STA Stop: 12/07/18 10:14 - Scribe Statement The provider has reviewed the documentation as recorded by the Austinibbarb Crowder Provider Scribe Attestation: All medical record entries made by the Scribe were at my direction and personally dictated by me. I have reviewed the chart and agree that the record accurately reflects my personal performance of the history, physical exam, medical decision making, and the department course for this patient. I have also personally directed, reviewed, and agree with the discharge instructions and disposition. Disposition/Present on Arrival - Present on Arrival Any Indicators Present on Arrival: No History of DVT/PE: No History of Uncontrolled Diabetes: No Urinary Catheter: No History of Decub. Ulcer: No History Surgical Site Infection Following: CABG - Mediastinitis, Orthopedic Procedures - Disposition Have Diagnosis and Disposition been Completed?: Yes Diagnosis: Chest pain Disposition: HOSPITALIZED Disposition Time: 11:26 Patient Plan: Admission Condition: FAIR
[2018-12-07 10:19] LABS: BASO # 0.03 K/mm3 (0.0-2.0); BASO % 0.5 % (0.0-3.0); EOS # 0.2 (0.0-0.7); EOS % 2.5 % (1.5-5.0); HEMOGLOBIN 11.3 g/dL (12.0-16.0); LYMPH # 0.8 (1.2-3.4); LYMPH % 13.4 % (22.0-35.0); MEAN CELL VOLUME 92.6 fl (80.0-105.0); MEAN CORPUSCULAR HEMOGLOBIN 29.9 pg (25.0-35.0); MEAN CORPUSCULAR HGB CONC 32.3 g/dl (31.0-37.0); MEAN PLATELET VOLUME 9.9 fl (7.0-11.0); MONO # 0.5 (0.1-0.6); MONO % 8.6 % (1.0-6.0); RBC 3.78 10^6/uL (3.5-6.1); RED CELL DISTRIBUTION WIDTH 13.9 % (11.5-14.5); WHITE BLOOD COUNT 6.3 10^3/uL (4.5-11.0)
[2018-12-07 10:29] LABS: INR 1.09; PARTIAL THROMBOPLASTIN TIME 32.9 Seconds (26.9-38.3); PROTHROMBIN TIME 12.3 SECONDS (9.4-12.5)
[2018-12-07 10:31] LABS: ALB/GLOB RATIO 1.2 (1.1-1.8); ALBUMIN 4.1 g/dL (3.0-4.8); ALT/SGPT 12 U/L (7-56); AST/SGOT 31 U/L (14-36); BLOOD UREA NITROGEN 13 mg/dL (7-21); CALCIUM 9.2 mg/dL (8.4-10.5); GFR NON-AFRICAN AMERICAN > 60; LIPASE 109 U/L (23-300)
[2018-12-07 10:41] LABS: TROPONIN I < 0.01 ng/mL
--- NOTE | 2018-12-07 10:58 | RAD ---
Date of service: 12/07/2018 HISTORY: chest pain COMPARISON: 04/04/2018 TECHNIQUE: 1 view obtained. FINDINGS: LUNGS: No active pulmonary disease. PLEURA: No significant pleural effusion identified, no pneumothorax apparent. CARDIOVASCULAR: Aortic calcification Normal cardiac size. No pulmonary vascular congestion. OSSEOUS STRUCTURES: Sternal wires VISUALIZED UPPER ABDOMEN: Normal. OTHER FINDINGS: None. IMPRESSION: No active disease.
[2018-12-07] MEDS: Pantoprazole 40 mg EC Tab PO SCH (13:16)
--- NOTE | 2018-12-07 23:49 | CARD ---
APPROVED REPORT Date of service: 12/07/2018 EKG Measurement Heart [id number] <Conclusion> Normal sinus rhythm Minimal voltage criteria for LVH, may be normal variant Inferior infarct, age undetermined Abnormal ECG
--- NOTE | 2018-12-08 03:12 | CARD ---
APPROVED REPORT Date of service: 12/07/2018 EKG Measurement Heart [id number] <Conclusion> Sinus rhythm with 1st degree AV block Intraventricular conduction delay of RBBB type Minimal voltage criteria for LVH, may be normal variant Borderline ECG
[2018-12-08 07:33] LABS: BASO # 0.04 K/mm3 (0.0-2.0); BASO % 0.6 % (0.0-3.0); EOS # 0.2 (0.0-0.7); EOS % 3.1 % (1.5-5.0); HEMOGLOBIN 10.3 g/dL (12.0-16.0); LYMPH # 1.2 (1.2-3.4); LYMPH % 18.4 % (22.0-35.0); MEAN CELL VOLUME 93.1 fl (80.0-105.0); MEAN CORPUSCULAR HEMOGLOBIN 29.8 pg (25.0-35.0); MEAN PLATELET VOLUME 9.4 fl (7.0-11.0); MONO # 0.8 (0.1-0.6); MONO % 11.6 % (1.0-6.0); RBC 3.46 10^6/uL (3.5-6.1); RED CELL DISTRIBUTION WIDTH 14.2 % (11.5-14.5); WHITE BLOOD COUNT 6.5 10^3/uL (4.5-11.0)
[2018-12-08 07:44] LABS: BLOOD UREA NITROGEN 13 mg/dL (7-21); GFR NON-AFRICAN AMERICAN > 60
[2018-12-08 07:51] LABS: TROPONIN I < 0.01 ng/mL
[2018-12-08] MEDS: Pantoprazole 40 mg EC Tab PO SCH (08:08)
[2018-12-08 11:46] VITALS: O2SAT 98
[2018-12-08 12:24] VITALS: BP 120/71; PULSE 70; RESP 21; TEMP 97.5
--- NOTE | 2018-12-08 19:39 | CON ---
DATE: 12/08/2018 REQUESTING PHYSICIAN: Dr. Avery. REASON FOR CONSULTATION: Abdominal and chest discomfort. HISTORY: This is an 83-year-old woman, well-known to me, with a history of coronary artery disease status post prior bypass surgery and PCI as well as a history of SVT and aortic stenosis, who presents to the emergency room with complaints of epigastric and lower sternal discomfort. She became concerned and presents to the emergency room for evaluation. Initial electrocardiogram and blood work are unremarkable. She is currently seen sitting in bed on telemetry, she has no further symptoms, and she is anxious to go home. She denies any recent exertional dyspnea or lightheadedness. PAST MEDICAL HISTORY: Notable for problems mentioned above. She does have a history of hypertension. PAST SURGICAL HISTORY: Prior surgery for a right hip fracture and humeral fracture. She has had a hysterectomy performed in the past. Her coronary bypass surgery was in 1998. In 2012, she underwent cardiac catheterization and was found to have a patent HUTSON to the LAD and first diagonal as well as severe lesions in the vein graft to the RCA and an atretic right radial artery bypass to the left circumflex artery. She underwent staged PCI of her RCA vein graft and [place] circumflex artery. MEDICATIONS AT HOME: Include aspirin, Lipitor, carvedilol 12.5 mg b.i.d., Plavix 75 mg daily, Zetia 10 mg daily, Altace 5 mg daily, Xanax p.r.n., amlodipine 10 mg daily, and Protonix. ALLERGIES: SHE HAS HAD A REACTION TO CONTRAST MEDIA IN THE PAST WELL CODEINE, WHICH CAUSED NAUSEA. FAMILY HISTORY: Unremarkable for premature heart disease. Both parents are from age-related illnesses. SOCIAL HISTORY: She does not smoke or drink. She lives at home with her family. REVIEW OF SYSTEMS: A 12-point review of systems is notable for intermittent constipation as well as arthritic joint pains. Review of systems is otherwise unremarkable. PHYSICAL EXAMINATION: GENERAL: She is a healthy-appearing elderly woman. VITAL SIGNS: Her blood pressure is 126/60 with a pulse of 52 and sinus, respirations are 14. She is afebrile. HEENT: Normocephalic, atraumatic. NECK: Supple. No JVD noted. Carotid upstrokes are diminished and delayed. CHEST: Clear to auscultation and percussion. HEART: PMI displaced laterally with a soft late-peaking systolic murmur present at the base radiating to the carotids. ABDOMEN: Soft, nontender, normoactive bowel sounds. EXTREMITIES: No clubbing, cyanosis, or edema. SKIN: Warm and dry. PSYCHIATRIC: Normal mood and affect. NEUROLOGIC: Alert and oriented x3. No gross motor or sensory deficits appreciable. DIAGNOSTIC DATA: White count 6.5, hemoglobin and hematocrit of 10.3 and 32.2 with platelet count of 200,000. PT/PTT of 12.3 and 32.9. Potassium 4.3, BUN and creatinine 13 and 0.6. Two sets of cardiac enzymes are negative. Chest x-ray reveals normal cardiac silhouette, post sternotomy changes, and clear lung mon. Electrocardiogram reveals a sinus rhythm with voltage criteria for LVH. A primary inferior wall myocardial fraction pattern cannot be excluded. IMPRESSION: 1. Epigastric and chest discomfort, unclear if this is cardiac or gastrointestinal in nature. No evidence of acute cardiac injury at the present time. 2. Known coronary artery disease status post prior bypass surgery and percutaneous coronary intervention. 3. Severe aortic stenosis. 4. Rest of problems as noted. RECOMMENDATIONS: From a cardiac standpoint, she appears stable for discharge home at this time. Outpatient followup was arranged next week. Discussion will be had at that time regarding treatment options for her aortic valve disease. If she has recurrent chest discomfort, she is instructed to return to the emergency room or call the office for further instructions. Thank you for this consultation. I will be happy to continue to see as needed. Ethan Cline MD
--- NOTE | 2018-12-11 02:40 | DS ---
HISTORY OF PRESENT ILLNESS: This is an 83-year-old woman, I know her from many years with history of coronary artery disease, hypertension, hyperlipidemia, status post CABG, and PCTA, who sees her general freight agent, Dr. Coppola as well as myself on a regular basis. The night of admission, the patient developed some epigastric chest discomfort. She tried Maalox or Mylanta with no relief and came to the emergency room. Troponins were negative because of her extensive personal history of coronary artery disease and family history. She was admitted for overnight observation. COURSE OF HOSPITAL STAY: Following morning troponins were normal. She was seen by her general freight agent, Dr. Cline. Her prior medications have been continued. She was comfortable and well. Proton pumps were resumed. She was asymptomatic and ready for discharge. In talking with the patient on admission yesterday and today this day of discharge, Monday, the patient admitted to having stopped her proton pump inhibitors and having an increase in epigastric symptoms since then, so she was ready to discharged home. Proton-pump inhibitors were resumed. Medications were reviewed with the patient and she is to follow up with us in the office in a week. She will follow up with Dr. Cline in two weeks. FINAL DISCHARGE DIAGNOSES: 1. Noncardiac chest pain. 2. Reflux esophagitis. 3. History of coronary artery disease. 4. Hypertension. 5. Hyperlipidemia. 6. History of supraventricular tachycardia in the past. 7. Severe aortic stenosis. 8. stenosis. PLAN: We have spoken to the patient in the past and she is aware that she may soon be a candidate for TAVR procedure and I will be conversation with Dr. Cline at their next visit in two weeks. Rashid Avery MD
== END 2018-12-08 13:51 | disposition home or self-care (01) ==
LOC: ED 09:25 → ERH 11:26 → 2RSO 18:15 → UNDODISOB 18:20
PROVIDERS: ADMIT Internal Medicine; ATTEND Internal Medicine
DX: R07.89 Other chest pain (principal); K21.0 Gastro-esophageal reflux disease with esophagitis; I10 Essential (primary) hypertension; E78.5 Hyperlipidemia, unspecified; I25.10 Atherosclerotic heart disease of native coronary artery without angina pectoris; I35.0 Nonrheumatic aortic (valve) stenosis; Z79.02 Long term (current) use of antithrombotics/antiplatelets; Z79.82 Long term (current) use of aspirin; Z95.1 Presence of aortocoronary bypass graft; Z95.5 Presence of coronary angioplasty implant and graft; Z87.01 Personal history of pneumonia (recurrent)
CPT/HCPCS: 36415; 71045; 80048; 80053; 82550; 83615; 83690; 83735; 84484; 85025; 85044; 85610; 85730; 93005; 96374; 99285; G0378